=== PATIENT | male | born 1980 | race Hispanic/Latino ===

== ENCOUNTER → 2018-08-29 | Outpatient (CLI) | payer OTHER ==
[~2018-08-29] MED LIST: ACIDOPHILUS1 EAC1 PO; BACTRIM DS TAB1 EACH PO; CLINDAMYCIN HC150 MG PO; FESO PO; FOLIC ACID1 MG PO; GABAPENTIN300 MG PO; GLIPIZIDE5 MG PO; HUMALOG100 UNIT/3 SQ; LANTUS 3ML100 UNITS/ SC; LASIX40 MG PO; LISINOPRIL10 MG PO; LISINOPRIL2.5 MG PO; METFORMIN HCL500 MG PO; NORVASC5 MG PO; PAROXETINE HCL20 MG PO; POTASSIUM CHLO10 ME1 PO; TYLENOL # 31 EA PO; TYLENOL WITH C1 EACH PO; ULTRAM50 MG PO
--- NOTE | 2018-08-29 18:34 | Diagnostic Imaging Report ---
Labeled WBC Study Reason for exam: Suspect acute hematogenous osteomyelitis of the right ankle. Patient has insulin-dependent diabetes for 19 years. He developed a plantar ulcer at the right 5th toe 3 years ago that had healed but recurred one year ago; although wound has decreased in size to "dime" size, the wound remains open. Comparison: MRI right foot 05/23/2018; right foot radiographs 05/22/2018 Report: The patient's own white blood cells were labeled with Tc-99m HMPAO 17 mCi by a commercial radiopharmacy. Images of feet and ankles were obtained at 3 hours post administration of the labeled white blood cells. Diffuse mildly increased tracer is seen in the soft tissues of the right lower leg, ankle and foot compared to the left. Small focal area of increased tracer is seen on the plantar aspect of the right foot opposite the 5th M/P joint. No adjacent uptake of tracer is seen in bone. No abnormal increased tracer is seen in the feet and ankles, specifically, none in the right ankle. IMPRESSION: 1. Diffuse inflammatory process in the soft tissues of the right lower leg, ankle and foot. 2. No scan evidence of osteomyelitis in or near the right ankle or elsewhere within the feet and ankles. 3. The superficial wound on the plantar aspect of the right foot near the 5th toe is limited to soft tissue and corresponds to the known slow healing ulcer. There is no extension into bone. Signed by: Dr. Tasha Stein M.D. on 08/29/2018 6:31 PM
== END ==
LOC: NM 06:46
PROVIDERS: ATTEND Internal Medicine Infectious Disease
DX: M86.071 Acute hematogenous osteomyelitis, right ankle and foot (principal)
CPT/HCPCS: 78806; A9521; A9556; A9570

== ENCOUNTER 2019-05-13 22:57 | Inpatient (IN) | payer BC, OTHER ==
[~2019-05-13] VITALS: Ht 170.2 cm; Wt 90.7 kg
[2019-05-13] MEDS ORDERED: ACETAMINOPHEN 325 MG TAB PO ONE (23:15)
--- NOTE | 2019-05-13 23:20 | NUR ---
RADIOLOGY AT BEDSIDE FOR CXR AT THIS TIME.
[2019-05-13] MEDS ORDERED: PIPER-TAZ 3.375 GM 50 ML IV SCH (23:30)
[2019-05-13 23:38] LABS: BASOPHILS % 0.2 % (0.0-1.0); EOSINOPHILS % 0.4 % (0.0-6.0); HEMATOCRIT 26.1 % (38.2-49.6); LYMPHOCYTES # (AUTO) 1.1 (1.0-3.2); LYMPHOCYTES % 9.9 % (18.0-39.1); MEAN CORPUSCULAR HEMOGLOBIN 29.4 pg (28-32); MEAN CORPUSCULAR HGB CONC 34.5 g/dL (31-35); MEAN CORPUSCULAR VOLUME 85.3 fL (81-99); MONOCYTES # (AUTO) 1.3 (0.2-0.8); MONOCYTES % 11.6 % (4.4-11.3); NEUTROPHILS # (AUTO) 8.6 (2.1-6.9); NEUTROPHILS % 75.9 % (38.7-80.0); PLATELET COUNT 277 x10e3/uL (140-360); RED BLOOD COUNT 3.06 x10e6/uL (4.3-5.7); RED CELL DISTRIBUTION WIDTH 14.4 % (11.7-14.4)
[2019-05-13 23:54] LABS: ALBUMIN/GLOBULIN RATIO 0.4 (0.8-2.0); ANION GAP 18.4 mmol/L (8-16); CALCIUM 8.5 mg/dL (8.4-10.2); CREATININE, SERUM 2.81 mg/dL (0.72-1.25); POTASSIUM 4.4 mmol/L (3.5-5.1)
[2019-05-14] VITALS (9 sets, daily range): BP systolic 112–141; BP diastolic 60–65
--- NOTE | 2019-05-14 00:06 | Diagnostic Imaging Report ---
Foot limited right CPT code: 62689 Indication: Foot swelling, pain, history of osteomyelitis Technique: A.P. and lateral views of the right foot obtained Comparison: MRI 05/13/2018, foot x-rays 05/22/2018 Findings: Erosive changes of the distal fourth metacarpal have developed with destruction of the MTP joint. The proximal phalanx of the fourth digit is gracile. There is extensive subcutaneous air along the fourth ray. No periosteal new bone formation. No acute fracture. Gracile appearance of the fifth metatarsal is redemonstrated with irregular cortical margins. There is chronic hyperextension of the fifth MTP and chronic flexion of the proximal IP joint. No erosive changes. Digits 1 through 3 appear intact. No fractures of the midfoot or hindfoot. There are degenerative changes of the IP joint of the first digit. Subcutaneous emphysema in the lateral ankle. There is suggestion of a skin ulceration at the plantar aspect of the first MTP. Diffuse soft tissue swelling of the foot and ankle. IMPRESSION: 1. Findings of chronic osteomyelitis of the fourth and fifth rays. Extensive subcutaneous emphysema along the fourth ray and along the lateral ankle concerning for acute osteomyelitis. 2. Ulceration at the plantar surface of the forefoot, possibly at the first MTP joint. No radiographic evidence of osteomyelitis. Signed by: Dr. Tonya Lucero MD on 05/14/2019 12:03 AM
[2019-05-14] MEDS ORDERED: DEXTROSE 50% SYRINGE 50 ML IV PRN (00:30)
[2019-05-14] MEDS ORDERED: SODIUM CHLORIDE 0.9% 1000ML 1,000 ML IV ONE (00:30)
[2019-05-14] MEDS: ONDANSETRON HCL INJ 2MG/ML 2ML 2 MG/ML VIAL IV PRN ×2 (00:42→04:18)
[2019-05-14] MEDS: MORPHINE SULFATE INJ 4 MG/ML INJ 1ML IV PRN ×6 (00:44→20:13)
[2019-05-14] MEDS: VANCOMYCIN 1GM/NS 250 ML 250 ML IV SCH (01:00)
[2019-05-14] MEDS ORDERED: VANCOMYCIN 1GM/NS 250 ML 250 ML IV SCH (01:00)
--- NOTE | 2019-05-14 01:06 | NUR ---
Received patient from ER on wheelchair. Patient transferred from to bed. at bedside. Patient provided the history stating the dresser feel on top of his right foot about a week ago with no open wound then 2-3 days later, pus was coming out from the top of the foot. Patient is A/Ox4 with pain at 8/10. Patient received pain IV medication in ER about 30 minutes ago. Bed height low, call light within reach, wheels lock and rails up x2. Will monitor the patient for pain. Placed disposable pad under the right foot for drainage. Foul odor is noted from the drainage.
[2019-05-14] MEDS: SODIUM CHLORIDE 0.9% 1000ML 1,000 ML IV SCH ×4 (02:37→20:55)
[2019-05-14] MEDS: PIPERACILLIN/TAZO 2.25 GM 50 ML IV SCH ×3 (08:15→23:47)
[2019-05-14] MEDS: INSULIN REGULAR, HUMAN 100 UNIT/1 ML 3ML VIAL SQ SCH ×4 (08:15→20:18)
[2019-05-14] MEDS: FERROUS SULFATE 325 MG PO SCH (15:39)
--- NOTE | 2019-05-14 16:46 | History and Physical ---
He is a 38-year-old male patient of mine presented with a complaint of right foot foul-smelling wound. HISTORY OF PRESENT ILLNESS: Mr. Ethan Marlow is a 38-year-old male patient with a previous history of diabetic foot ulcer and chronic osteomyelitis and Charcot joint and diabetic foot and insulin-requiring diabetes in the young male. The patient presented to the emergency room with a complaint of 1-week history of injury to the right foot by moving furniture and the patient stated that the furniture fell on his right foot and then subsequently had redness, swelling, pain, and purulent discharge. The patient stated he was in [place] and he saw local doctor and was given some kind of antibiotic, but the patient did not get any better and the patient gradually got worse and had a severe foul smelling, leg ulceration, and purulent discharge. So, the patient had come to the emergency room. The patient was also seen by podiatry, Dr. Aguilera as outpatient for his chronic foot wound and before the injury, the wound was better. REVIEW OF SYSTEMS: A detailed review of system examination was done and the patient was having weakness, fever, chills, and foul smelling, ulceration of the right foot. ALLERGIES: NO KNOWN DRUG ALLERGIES. SOCIAL HISTORY: Denies smoking. Denies using alcohol. FAMILY HISTORY: Diabetes mellitus, hypertension. MEDICATIONS: See from the list. PAST SURGICAL HISTORY: The patient has a surgery of the right foot I and D was done. PHYSICAL EXAMINATION: GENERAL: He is a young male patient lying in the bed, not in any acute distress. VITAL SIGNS: Temperature 99, pulse rate 20, blood pressure 138/84, respirations 20. Temperature was 100.5 on arrival. HEENT: Normocephalic, atraumatic. No JVD. No lymphadenopathy. LUNGS: Bilateral equal air entry. No rales, no rhonchi. HEART: S1, S2 regular. No murmur. No gallop. ABDOMEN: Soft. Bowel sounds are present. NEUROLOGICAL: No focal neurological deficit. ADMITTING IMPRESSION: Extremity examination, right foot ulceration. The patient has a purulent draining foul smelling wound on the right foot between the toes. The patient has a chronic ulceration on the sole of the foot. The patient has redness, swelling, and tenderness in the foot. ADMITTING IMPRESSION/DIAGNOSES: Right foot osteomyelitis, right foot abscess, type 1 diabetes mellitus, acute on chronic renal failure, hyperglycemia, and anemia of chronic disease. PLAN: The patient will be admitted with above diagnoses. The patient will be treated with vancomycin and Zosyn and we will do the podiatry and ID consultation and nephrology consultation and the patient will need extensive debridement and wound cleaning. So, we will consult Podiatry and we will hold the patient's lisinopril and potassium in the context of renal failure. MD LUIS Echeverria/MODL /[id number]
[2019-05-14] MEDS ORDERED: ACETAMINOPHEN/CODEINE 300MG - 30MG TAB PO SCH ×2 (18:00→18:15)
[2019-05-14] MEDS ORDERED: FENTANYL CITRATE/PF 100MCG/2 ML INJ ONE (18:41)
[2019-05-14] MEDS ORDERED: MIDAZOLAM HCL 2 MG/2 ML VIAL ONE (18:41)
--- NOTE | 2019-05-14 18:45 | NUR ---
Received bedside report from day shift RN. Patient is laying on the bed, bed height low, call light within reach, wheels lock, and side rails up x2. Patient is talking on the phone with friend/family.
[2019-05-14] MEDS: ACETAMINOPHEN/CODEINE 300MG - 30MG TAB PO PRN (18:58)
[2019-05-14] MEDS: INSULIN GLARGINE 100 UNITS/ML VIAL SC SCH (20:18)
[2019-05-15] VITALS (8 sets, daily range): BP systolic 117–149; BP diastolic 73–80
[2019-05-15] MEDS: MORPHINE SULFATE INJ 4 MG/ML INJ 1ML IV PRN ×6 (00:13→22:22)
[2019-05-15] MEDS: VANCOMYCIN 1GM/NS 250 ML 250 ML IV SCH ×2 (00:13→23:58)
--- NOTE | 2019-05-15 04:21 | NUR ---
RN changed dressing by removing old dressing. Old dressing saturated with both pus (foul odor) described as greenish yellowish and blood. Dressing was saturated moderate to large. One wound (dry) was noted under the foot. The wound with drainage is noted between digit 3 and 4 as open. Another wound is noted on the lateral aspect of the foot as dry. Wound between the toes was cleaned with NS. NS applied on the 4x4 between the toes and covered with Kerlix and tape. Proper dressing will take place once retail client solutions consultant/wound care nurse assess the wound and provide instruction for wound care.
[2019-05-15 05:50] LABS: BASOPHILS % 0.2 % (0.0-1.0); EOSINOPHILS # (AUTO) 0.1 (0.0-0.4); EOSINOPHILS % 0.5 % (0.0-6.0); HEMATOCRIT 24.5 % (38.2-49.6); HEMOGLOBIN 7.8 g/dL (14.0-18.0); LYMPHOCYTES # (AUTO) 1.3 (1.0-3.2); LYMPHOCYTES % 10.6 % (18.0-39.1); MEAN CORPUSCULAR HEMOGLOBIN 28.7 pg (28-32); MEAN CORPUSCULAR HGB CONC 31.8 g/dL (31-35); MEAN CORPUSCULAR VOLUME 90.1 fL (81-99); MONOCYTES # (AUTO) 0.9 (0.2-0.8); MONOCYTES % 7.8 % (4.4-11.3); NEUTROPHILS # (AUTO) 9.2 (2.1-6.9); NEUTROPHILS % 78.6 % (38.7-80.0); PLATELET COUNT 248 x10e3/uL (140-360); RED BLOOD COUNT 2.72 x10e6/uL (4.3-5.7); RED CELL DISTRIBUTION WIDTH 14.7 % (11.7-14.4)
[2019-05-15 06:05] LABS: ALBUMIN 1.6 g/dL (3.5-5.0); ALBUMIN/GLOBULIN RATIO 0.3 (0.8-2.0); ANION GAP 16.1 mmol/L (8-16); CALCIUM 7.8 mg/dL (8.4-10.2); CREATININE, SERUM 2.43 mg/dL (0.72-1.25); POTASSIUM 4.1 mmol/L (3.5-5.1)
[2019-05-15] MEDS: SODIUM CHLORIDE 0.9% 1000ML 1,000 ML IV SCH (07:06)
[2019-05-15] MEDS: INSULIN REGULAR, HUMAN 100 UNIT/1 ML 3ML VIAL SQ SCH ×4 (08:40→21:13)
[2019-05-15] MEDS: PIPERACILLIN/TAZO 2.25 GM 50 ML IV SCH ×3 (08:40→22:22)
[2019-05-15] MEDS: FOLIC ACID 1 MG TAB PO SCH (08:40)
[2019-05-15] MEDS: ONDANSETRON HCL INJ 2MG/ML 2ML 2 MG/ML VIAL IV PRN ×4 (08:45→22:22)
[2019-05-15 08:58] LABS: EOSINOPHILS % (MANUAL) 2 % (0-7); LYMPHOCYTES % (MANUAL) 12 % (19-48); MONOCYTES % (MANUAL) 5 % (3.4-9.0); NEUTROPHILS % (MANUAL) 81 % (40-74); PLATELET ESTIMATE ADEQUATE; PLATELET MORPHOLOGY COMMENT NORMAL; RBC MORPHOLOGY COMMENT NORMAL
[2019-05-15] MEDS ORDERED: POTASSIUM CHLORIDE 10MEQ EA PO SCH (09:00)
[2019-05-15] MEDS ORDERED: LISINOPRIL 10 MG TAB PO SCH (09:00)
[2019-05-15] MEDS ORDERED: FUROSEMIDE 40 MG TAB PO SCH (09:00)
[2019-05-15] MEDS: FERROUS SULFATE 325 MG PO SCH ×2 (09:00→16:18)
--- NOTE | 2019-05-15 12:06 | Diagnostic Imaging Report ---
EXAM: Renal Ultrasound INDICATION: ^FREDDIE, CKD ^[id number] ^[id number] COMPARISON: Hepatic ultrasound of 05/30/2018 TECHNIQUE: Transverse and longitudinal images of the kidneys and bladder were obtained. FINDINGS: Right Kidney: Length: 12.7 cm Appearance: Normal echogenicity. Collecting system: No hydronephrosis Stones: None Cyst/Mass: None Left Kidney: Length: 12.1 cm Appearance: Normal echogenicity. Collecting system: No hydronephrosis Stones: None Cyst/Mass: None Bladder: Normal Incidental note is made of a mildly enlarged spleen, measuring up to 17.28 cm IMPRESSION: No hydronephrosis or renal calculi. Mild splenomegaly. Signed by: Xena Bonner MD on 05/15/2019 12:03 PM
[2019-05-15] MEDS: ENOXAPARIN INJ 80 MG/0.8 ML SYR SC SCH ×2 (12:57→23:19)
[2019-05-15] MEDS ORDERED: TETANUS/DIPHTHERIA TOX ADULT 0.5 ML SYR IM ONE (13:00)
--- NOTE | 2019-05-15 13:15 | Consultation ---
DATE OF CONSULTATION: 05/15/2019 REASON FOR CONSULTATION: Peripheral artery disease. CHIEF COMPLAINT: Right foot swelling. HISTORY OF PRESENT ILLNESS: This is a 38-year-old male with history of chronic right foot osteomyelitis, diabetes type 1, hypertension, chronic kidney disease stage 3, gastritis, anemia. The patient presents to [facility] ER with apparent complaints of right lower leg swelling, right foot swelling, redness, and fevers. Imaging done on the right foot showing right 4th and 5th digit osteomyelitis. Cardiology was consulted to evaluate the patient. The patient is seen in room, reports about a week or so ago was moving furniture, and furniture hit his right foot about 2 to 3 days later noted that his foot was swollen and he was admitted at that time, in which he received antibiotics x4 days. However, right foot swelling became worse, foul smelling. Therefore came to the hospital for further evaluation. Of note, patient had a left heart catheterization on March 19, 2016 and a peripheral angiogram on March 19, 2016 here at [facility] showing minimal plaque in coronary arteries. Also peripheral angiogram showed minimal tibial disease. PAST MEDICAL HISTORY: Diabetes type 1, hypertension, chronic right foot osteomyelitis, anemia, gastritis, esophageal strictures, chronic kidney disease. PAST SURGICAL HISTORY: Has three surgeries, left heart catheterization and peripheral angiogram in March 2016, right foot debridement. ALLERGIES: NO KNOWN ALLERGIES. HOME MEDICATIONS: Include lisinopril 20 mg daily, Lantus 20 units subcu at bedtime, Lasix 40 mg p.o. daily, folic acid 1 mg p.o. daily. FAMILY HISTORY: Mother apparently from ID at age of 63. Father is about 74 years of age. History of diabetes, hypertension. SOCIAL HISTORY: He is . 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 Has two young children. Apparently is healthy. Denies any alcohol use, tobacco use. REVIEW OF SYSTEMS: GENERAL: Denies any weakness. Positive for fevers and chills. Denies any weight changes. HEENT: No headaches or hearing issues. No earaches. Denies vision changes, sore throat, swollen neck. CARDIAC: Denies any chest pain. Positive for dyspnea on exertion. Denies any palpitations, orthopnea, or PND. LUNGS: Denies any shortness of breath, any hemoptysis, any wheezing. GI: Denies any nausea, vomiting, diarrhea, constipation, melena, or hematochezia. : Denies any frequency, urgency, dysuria, or hematuria. NEUROLOGIC: Denies any seizures, headaches, weakness. Positive for peripheral neuropathy. ENDOCRINE: Denies any polyuria, polydipsia, polyphagia. PHYSICAL EXAMINATION: VITAL SIGNS: Height 67 inches, weight 200 pounds, BMI 31. Current temperature 97, pulse 75, respiratory rate 20, blood pressure 132/74, pulse ox 100% on room air. GENERAL: No acute distress. Reliable informant. HEENT: Normocephalic. Pupils are equal and reactive. Extraocular movement intact. Trachea midline. NECK: No JVD. No carotid bruits. CHEST: Bilateral breath sounds clear to auscultation. No wheezes or rales noted. HEART: Regular rate and rhythm. PMI at 5th intercostal space, left intercostal space +1 and +S2. ABDOMEN: Soft, nontender, nondistended. No organomegaly. EXTREMITIES: Lower extremity edema, right greater than left. Also right foot with dressing with serosanguineous drainage and foul smelling. VASCULAR: +2 bilateral radial pulses bilaterally, +2 bilateral femoral pulses bilaterally, +1 DP and PT pulses bilaterally. NEUROLOGIC: Cranial nerves II through XII seem intact. LABORATORY DATA: Sodium 130, potassium 4.1, chloride 104. BUN 56, creatinine 2.4, glucose 184. CBC; white count 11, hemoglobin 9, hematocrit of 26, platelets 277. Micro; right foot showing gram-negative bacilli, Staph aureus and Streptococcus species. Right foot x-ray showing 4th and 5th chronic osteomyelitis, also subcu emphysema along the 4th digit and also along the lateral ankle. ASSESSMENT: 1. Right foot osteomyelitis. 2. Diabetes. 3. History of left heart catheterization in March 2016 showing minimal plaquing also. 4. History of peripheral angiogram in March 2016 showing minimal tibial disease. PLAN: 1. The patient presents with right foot osteomyelitis. ID has been consulted for antibiotic therapy. 2. Arterial Doppler has been done, will be reviewed by Cardiology attending. 3. Right leg with extensive swelling. We will go ahead and do a stat venous Doppler to evaluate for any occult DVTs. 4. We will go ahead and place patient on modified Lovenox dosing given kidney function. 5. We will continue to follow the patient and evaluate status and further make recommendations as clinical course. Thank you very much for this consult. Seen and examined, severe cellulitis with tissue loss and marked swelling of right leg worried also for DVT, compatment syndrome etc... Critical status Orders are written, discussed with ID Dr. Rico, needs to have surgical consult Dictated by Júnior Naranjo, FRAME RUNNER Rico Morrow MD DC/IRAJ /[id number] MTDRebecca
--- NOTE | 2019-05-15 13:49 | NUR ---
Consultation for foot wound to R foot after dropping an dresser on the foot 10 days ago. Patient states there was really nothing wrong with it but 3 days later it was hurting and he did not feel well and it started draining. [place]. Patient had an ongoing diabetic foot ulcer that has been under the care of Dr. Willy LOPEZ at [facility]. The plantar surface wound does not appear to communicate the the injury and no purulent drainage. The injured site appears to be at the 3rd and 4th metatarsal area. Upon pressing the top of the foot, copious amounts of purulent drainage is expressed, mixed with blood. There is an odor noted. Able to palpate bone, and the depth of the wound extends 11 cm. The WBC count is at 6.1. The patients GFR is at 7 with BNP at 771.9. Patient states he tries to stay on his diet, but children in the room are teasing the patient about not keeping diet. Current glucose levels showing below 100. Placed a message into Dr. Veronica Palm regarding urgent need for consultation. Maxorb AG placed to both wounds until consultation is complete for further orders. Education to patient regarding the nature of his wounds, and the need for strict compliance with dietary regiment.
[2019-05-15] MEDS: SODIUM BICARBONATE 650 MG TAB PO SCH ×2 (15:00→21:14)
--- NOTE | 2019-05-15 15:16 | Consultation ---
INFECTIOUS DISEASE CONSULTATION DATE OF CONSULTATION: 05/15/2019 REASON FOR CONSULTATION: Osteomyelitis. Thank you, Dr. Shankar, for asking me to see this patient, who was admitted through the emergency department. HISTORY OF PRESENT ILLNESS: The patient is a 38-year-old man referred for osteomyelitis. He presented to the emergency department on 05/13/2019, with progressive swelling and pain of the right foot and lower leg, associated with purulent drainage and redness. He had injury to the right foot, when a furniture fell on the right foot about one week earlier. He was treated in [place] with antibiotic without improvement. In the emergency department, he was noted to have a temperature of 100.5 degrees Fahrenheit, pulse rate 95, respiratory rate 20, blood pressure 138/84, and oxygen saturation 100% on room air. Initial laboratory studies showed blood leukocyte count of 11,360 with 75.9% neutrophils, BUN 56, creatinine 2.43, and blood glucose 220. X-ray of the right foot showed chronic osteomyelitis of the 4th and 5th rays with extensive subcutaneous emphysema along the 4th ray and lateral ankle concerning for acute osteomyelitis. PAST MEDICAL HISTORY: Diabetes mellitus type 1, hypertension, and chronic kidney disease. PAST SURGICAL HISTORY: Left foot surgery. ALLERGIES: NO KNOWN DRUG ALLERGIES. MEDICATIONS: See MAR. Current antibiotics are Zosyn 2.25 g IV piggyback q.8 hours, vancomycin 1 g IV piggyback q.24 hours. IMMUNIZATION: Tetanus-diphtheria vaccination, status cannot be verified. FAMILY HISTORY: Significant for diabetes mellitus and hypertension. SOCIAL HISTORY: No alcohol, tobacco, or recreational drug use. REVIEW OF SYSTEMS: As per history of present illness. The patient still has intermittent fever as well as purulent draining, redness, and swelling of the right foot. He denies cough, shortness of breath, nausea, vomiting, diarrhea, and abdominal pain. PHYSICAL EXAMINATION: GENERAL: No acute distress. VITAL SIGNS: T-max 99.9, pulse rate 85, respiratory rate 20, blood pressure 146/76, and weight 200 pounds. HEENT: Normocephalic. There is no icterus or injection of conjunctivae. There is no ear or nasal discharge. Moist oral mucosa. No pharyngeal erythema or exudate. NECK: Supple. No meningismus. LUNGS: Clear to auscultation bilaterally. HEART: Normal S1, S2. Regular. ABDOMEN: Soft and nontender. EXTREMITIES: There is edema, redness, and warmth of right foot with purulent drainage from the lateral forefoot. Dorsalis pedis and posterior tibial pulses difficult in the right foot. SKIN: There is a draining wound of the lateral forefoot. SENIOR TEST ANALYST: Awake, alert, oriented to person, place, and time. There is decreased sensation to monofilament test of the feet. Nonfocal. LABORATORY AND DIAGNOSTICS: WBC 11,760, hemoglobin 7.8, and platelet 248,000, neutrophils 78.6, lymphocytes 10.6, monocytes 7.8, eosinophils 0.5, and basophils 0.2. BUN 56, creatinine 2.43, blood glucose 198. IMPRESSION: 1. Diabetic foot abscess. 2. Acute osteomyelitis of the right foot/ankle. 3. Diabetes mellitus type 1. 4. Acute kidney injury on chronic kidney disease. PLAN: 1. Change Zosyn to 2.25 g IV piggyback q.6 hours. Administer tetanus-diphtheria vaccine if not yet given. 2. Check arterial Doppler ultrasound report and C-reactive protein. Also, monitor vancomycin level very closely. 3. Podiatry consult. MD DIPAK Chacon/IRAJ /[id number] MTDD
--- NOTE | 2019-05-15 15:16 | Consultation ---
DATE OF CONSULTATION: 05/15/2019 HISTORY OF PRESENT ILLNESS: This is a 38-year-old gentleman with a history of type 1 diabetes for at least 20 years. He stays he has some vision changes as well. He does not take any medication for his blood pressure. He states that sometimes it goes up, sometimes comes down. He is here for an infected foot ulcer. Renal consult for management of kidney failure. Laboratory test shows hemoglobin 7.8, white count 11.7 with a sodium 130, potassium 4.1, bicarbonate 14, creatinine 2.4 with an albumin 1.6. SOCIAL HISTORY: He does not smoke or drink. FAMILY HISTORY: Significant for diabetes. ALLERGIES: NO APPARENT DRUG ALLERGIES. REVIEW OF SYSTEMS: Negative for nausea, vomiting, chest pain, shortness of breath. He is at the moment receiving normal saline at 125 mL/hour, which I am going to stop at this point in time. MEDICATIONS: He is on piperacillin and tazobactam receiving vancomycin 1 g q.24. He is on enoxaparin, Lovenox 70 q.12h, folic acid 1 mg daily. Lasix has been stopped. He is on insulin as well as lisinopril. Lisinopril has been stopped also along with potassium replacement. PHYSICAL EXAMINATION: GENERAL: Awake, alert, and oriented x3, lying supine in bed, in no apparent distress. VITAL SIGNS: Blood pressure 132/74, pulse rate 75, afebrile, oxygen saturation 100% on room air. HEAD AND NECK: Cornea clear. Oral mucosa moist. Neck veins flat. LUNGS: Relatively clear. HEART: 2 to 3/6 ejection systolic murmur heard over left sternal border. No gallop. ABDOMEN: Otherwise soft, nontender. EXTREMITIES: Lower extremity, dressing noted in right foot. There is some 1+ edema, pretibial right foot. Left lower extremity, no edema. IMPRESSION: 1. Anemia, multifactorial, most likely iron deficiency anemia with metabolic acidosis, most likely distal RTA. 2. Hyponatremia, multifactorial. 3. Acute kidney injury, most likely an underlying diabetic nephropathy and improving otherwise. PLAN: On obtaining a urinalysis, spot urine protein-creatinine ratio, kidney ultrasound, iron profile. Start sodium bicarbonate tablets. He may need packed RBC transfusion. Medications reviewed and agree with measures taken. Please Dr. Gomez in charge of antibiotics, defer vancomycin level checks to him. Further recommendations to follow. MD SHERIF Jolley/IRAJ /[id number]
[2019-05-15 16:56] LABS: ALBUMIN 1.8 g/dL (3.5-5.0); ALBUMIN/GLOBULIN RATIO 0.3 (0.8-2.0); ANION GAP 13.4 mmol/L (8-16); CALCIUM 8.2 mg/dL (8.4-10.2); CREATININE, SERUM 2.26 mg/dL (0.72-1.25); POTASSIUM 4.4 mmol/L (3.5-5.1)
[2019-05-15 17:09] LABS: % IRON SATURATION 13 % (15-50); IRON 20 ug/dL (65-175); TOTAL IRON BINDING CAPACITY 155 ug/dL (261-478); TRANSFERRIN 111 mg/dL (174-364)
--- NOTE | 2019-05-15 18:45 | NUR ---
Received bedside report from day shift RN. Patient is laying on the bed, bed height low, call light within reach, wheels lock, and side rails up x2. RN instructed the patient will be receiving 2 units of RBC and will need to sign the consents for blood transfusion and I&D, possible amputation of the right foot. Verbalized understanding.
[2019-05-15] MEDS ORDERED: SODIUM CHLORIDE 0.9% 250ML 250 ML IV ONE (19:15)
--- NOTE | 2019-05-15 19:24 | Diagnostic Imaging Report ---
EXAMINATION: CHEST 2 VIEWS INDICATION: Acute on chronic renal failure. Denies chest complaints. ^pre-procedure COMPARISON: None FINDINGS: PA and lateral views TUBES and LINES: None. LUNGS: Lungs are well inflated. Lungs are clear. There is no evidence of pneumonia or pulmonary edema. PLEURA: No pleural effusion or pneumothorax. HEART AND MEDIASTINUM: The cardiomediastinal silhouette is unremarkable. BONES AND SOFT TISSUES: No acute osseous lesion. Soft tissues are unremarkable. UPPER ABDOMEN: No free air under the diaphragm. IMPRESSION: No acute thoracic abnormality. Signed by: Dr. Sunny Casiano M.D. on 05/15/2019 7:21 PM
[2019-05-15] MEDS: INSULIN GLARGINE 100 UNITS/ML VIAL SC SCH (21:14)
[2019-05-15] MEDS ORDERED: SODIUM CHLORIDE 0.9% 500ML 500 ML ONE (22:17)
--- NOTE | 2019-05-15 23:20 | NUR ---
RN called lab to check on blood unit stat. Lab stated the patient has antibodies and in searching for the right type at the blood bank. The patient was informed about this and acknowledge once the blood is located and brought to the hospital, the blood transfusion will begin. Verbalized understanding.
[2019-05-16] VITALS (14 sets, daily range): BP systolic 115–165; BP diastolic 53–83
[2019-05-16] MEDS: ONDANSETRON HCL INJ 2MG/ML 2ML 2 MG/ML VIAL IV PRN (02:12)
[2019-05-16] MEDS: MORPHINE SULFATE INJ 4 MG/ML INJ 1ML IV PRN ×3 (02:12→18:55)
[2019-05-16] MEDS: PIPERACILLIN/TAZO 2.25 GM 50 ML IV SCH ×2 (06:00→12:40)
[2019-05-16] MEDS ORDERED: LIDOCAINE HCL 1% LOCAL INJ 20 ML VIAL ONE (06:51)
[2019-05-16] MEDS ORDERED: BUPIVACAINE HCL 0.5% INJ 30 ML VIAL INJ ONE (06:51)
[2019-05-16] MEDS ORDERED: BETAMETHASONE DISODIUM PHOS 6 MG/ML VIAL ONE (06:51)
[2019-05-16] MEDS ORDERED: BACITRACIN 50,000 UNIT VIAL ONE (06:51)
[2019-05-16] MEDS ORDERED: MUPIROCIN 2% OINT 22 GM TUBE ONE (06:51)
[2019-05-16] MEDS: INSULIN REGULAR, HUMAN 100 UNIT/1 ML 3ML VIAL SQ SCH ×4 (07:30→22:15)
--- NOTE | 2019-05-16 07:30 | NUR ---
REC'D PATIENT AAOX3, ON ROOM AIR, NS RUNNING AT 125 ML/HR, NO S/S OF DISTRESS. PATIENT BEING TAKEN TO SURGERY. CONSENT SIGNED.
[2019-05-16] MEDS: SODIUM BICARBONATE 650 MG TAB PO SCH ×2 (08:45→22:15)
[2019-05-16] MEDS: FERROUS SULFATE 325 MG PO SCH ×2 (08:45→17:00)
[2019-05-16] MEDS: FOLIC ACID 1 MG TAB PO SCH (08:45)
--- NOTE | 2019-05-16 08:45 | Diagnostic Imaging Report ---
Exam: Right foot 3 views History: Postoperative study Comparison: Right foot 3 views 05/13/2019 Findings: Interval debridement of the lateral aspect of the forefoot with resection of the fourth proximal phalanx. Cortical destructive change of the fourth metatarsal and middle phalanx is grossly unchanged. Stable changes of chronic osteomyelitis with deformity of the fifth metatarsal and metatarsophalangeal joint. Atherosclerotic vascular calcifications. Overlying bandage material limits osseous detail. Impression: Interval debridement and resection of the fourth proximal phalanx, with otherwise stable findings of osteomyelitis involving the lateral forefoot relative to 05/13/2019. Signed by: Dr. Júnior Robles M.D. on 05/16/2019 8:42 AM
--- NOTE | 2019-05-16 09:00 | NUR ---
PATIENT RETURNED FROM SURGERY. SIDE RAILS UP X2, BED IN LOWEST POSITION, AND CALL GRANT WITHIN REACH. FAMILY MEMBER AT BEDSIDE.
[2019-05-16 09:12] LABS: BASOPHILS % 0.2 % (0.0-1.0); EOSINOPHILS % 0.3 % (0.0-6.0); HEMATOCRIT 27.8 % (38.2-49.6); HEMOGLOBIN 9.2 g/dL (14.0-18.0); LYMPHOCYTES # (AUTO) 0.8 (1.0-3.2); LYMPHOCYTES % 5.8 % (18.0-39.1); MEAN CORPUSCULAR HEMOGLOBIN 29.7 pg (28-32); MEAN CORPUSCULAR HGB CONC 33.1 g/dL (31-35); MEAN CORPUSCULAR VOLUME 89.7 fL (81-99); MONOCYTES # (AUTO) 0.4 (0.2-0.8); NEUTROPHILS # (AUTO) 11.5 (2.1-6.9); NEUTROPHILS % 89.1 % (38.7-80.0); PLATELET COUNT 293 x10e3/uL (140-360); RED CELL DISTRIBUTION WIDTH 14.4 % (11.7-14.4)
[2019-05-16] MEDS ORDERED: EPOETIN ALFA 10000 UNIT/ML VIAL SC ONE (10:00)
[2019-05-16 10:20] LABS: ALBUMIN 1.7 g/dL (3.5-5.0); ALBUMIN/GLOBULIN RATIO 0.3 (0.8-2.0); ANION GAP 14.4 mmol/L (8-16); CALCIUM 7.9 mg/dL (8.4-10.2); CREATININE, SERUM 2.1 mg/dL (0.72-1.25); POTASSIUM 4.4 mmol/L (3.5-5.1)
--- NOTE | 2019-05-16 10:45 | Operative Report ---
DATE OF PROCEDURE: 05/16/2019 SURGEON: Mark Palm DPM PREOPERATIVE DIAGNOSES: 1. Ulcerations x2 down to muscle and bone, right foot. 2. Abscess, right foot. POSTOPERATIVE DIAGNOSES: 1. Ulcerations x2 down to muscle and bone, right foot. 2. Abscess, right foot. OPERATIVE PROCEDURE: 1. Debridement of ulcers down to bone and muscle, right foot. 2. I and D of abscess down to muscle and subcutaneous tissue and close to bone, right foot, multiple areas. ANESTHESIA: General. HEMOSTASIS: None. PROCEDURE IN DETAIL: The patient was taken into the operating room, placed on the operating room table in supine position. Following induction of general anesthesia by the anesthesiologist, the right lower extremity was then prepped and draped in the usual aseptic manner and the following procedures then performed. Procedure #1 and #2: Debridement of ulcerations down to muscle and bone. Attention was directed to the plantar ulceration of the right foot, which was noted to be tracking down to bone. The ulceration was debrided down to bone via the use of a sterile 10 blade, devitalized tissue sharply excised until good viable bleeding tissue achieved, abscess was encountered and cultured for aerobic and anaerobic growth. The bone was then debrided. Part of the 4th digit proximal phalanx was removed via sharp dissection. The ulceration to the plantar lateral aspect of the right foot was also debrided down to muscle, devitalized tissue sharply excised until good viable bleeding tissue was achieved. Ulcerations were measuring approximately 2.5 to 3 cm in diameter in plantar aspect of left foot and approximately 2 to 2.5 cm in diameter in plantar lateral aspect of right foot, tracking down to the subcutaneous tissue and fascial layers of the foot. Procedure #3: Debridement of abscesses, multiple areas, right foot. Attention was directed to the dorsal lateral aspect of the right talotibial joint, where a 3-4 cm incision was performed. Incision was deepened down through the muscle and subcutaneous tissue. Deep abscesses were encountered and I and D'd until good viable bleeding tissue was achieved both dorsally, plantarly, and plantar laterally. Three incisions were performed and each incision was then irrigated copiously with pulse lavage utilizing 50,000 units of bacitracin until good bleeding tissue was achieved, then the areas were then surgically packed and approximately 15 to 20 mL of 0.5% plain Marcaine were then used to achieve local anesthesia of above-mentioned surgical area. The patient was then transferred from the OR to recovery room with vital signs stable and neurovascular status intact. Blood loss from the surgery was approximately 50 mL. The patient will remain in the hospital getting IV antibiotics and local wound care. May need further surgery if not responsive, which may even include a [id number] amputation. JOHN Garza/IRJA /[id number]
--- NOTE | 2019-05-16 11:56 | Consultation ---
DATE OF CONSULTATION: 05/15/2019 REASON FOR CONSULTATION: Abscess, cellulitis with a grade 4 ulcer, right foot with the patient being an insulin-dependent diabetic x19 years. HISTORY OF PRESENT ILLNESS: This is a pleasant 38-year-old male, who is in no apparent distress, denying any history of fever, chills, nausea, vomiting at this point, but was having nausea and fever upon admission. The patient relates he had an ulceration that has been treated on an outpatient basis per Dr. Aguilera, was last seen back three weeks ago ended up going to [place] after he hit his foot against a furniture, was given antibiotics in [place], did not get any better and started relating that he had some fever and chills. The patient started squeezing his foot and started getting purulent drainage from his ulceration on the plantar aspect and also to the lateral aspect of the right ankle joint. PAST MEDICAL HISTORY: Remarkable for insulin-dependent diabetes, hypertension. PAST SURGICAL HISTORY: Remarkable for multiple I and D's of the right foot with partial resections of the 4th and 5th mets. He had multiple spider bites that had to be I and D'd one to the back of his head and the other one to his abdomen area and has had angiograms back in March of 2016 with a left heart catheterization. ALLERGIES: THE PATIENT DENIES. CURRENT MEDICATIONS: Noted listed in chart including IV Zosyn and vancomycin. SOCIAL HISTORY: Denies any smoking, drinking, or recreational drug use. Lives with his . Has two kids. FAMILY HISTORY: Remarkable for diabetes. REVIEW OF SYSTEMS: CARDIAC: He is denying any palpitations or arrhythmias. RESPIRATORY: Denies any shortness of breath or productive cough. GASTROINTESTINAL: Denies any abdominal pain or diarrhea. PHYSICAL EXAMINATION: VITAL SIGNS: The patient is currently afebrile, pulse rate 83, respirations 20, blood pressure 139/79, O2 saturation 100%. LABORATORY DATA: Noted. He has a white blood cell count of 11.3 upon admission on 05/13. It is now 11.7. Hemoglobin of 7.8, hematocrit of 24.5, platelet count of 248. Blood glucose of 125. PODIATRIC PHYSICAL EXAMINATION: Reveals the following: VASCULATURE: Pedal pulses of both the DP and PT are diminished. Has a moderate amount of swelling and cellulitis of the right leg and foot when compared to contralateral side. NEUROLOGIC: Examination was complete loss of protective sensation to both lower extremities. MUSCULOSKELETAL: Shows muscle mass to be asymmetrical. Some swelling and pitting edema noted to the right leg with positive cellulitis up to the mid calf area with muscle strength to be 4/5 to all muscle groups. DERMATOLOGIC: Shows multiple ulcerations to both lower extremities with a grade 4 ulcer tracking to bone sub 4th and 5th metatarsophalangeal joint area measuring more than 2 cm in diameter. Has purulent drainage surrounding the lateral aspect of the right ankle joint with fluctuance felt. Has osteomyelitic changes noted to possibly of 4th and 5th digits with some metatarsal sharpening of the shaft of the 4th and 5th mets, which may be consistent with possible osteo. IMAGING: X-rays were reviewed revealing gas to the dorsal aspect and plantar aspect right foot. ASSESSMENT: Deep space infection/osteomyelitis with a grade 4 ulcer. PLAN: Secondary to the extent of the infection, the patient will be taken for emergency surgical intervention tomorrow. He already ate today. Surgery will consist of debridement of ulcers, I and D of foot, with possible partial resection of the right foot depending on intraoperative findings. The proposed surgery plus risks and complications reviewed in great detail. The patient understands that no guarantees or warranties can be given. If not responsive, may end up even losing his leg. Chest x-ray and EKG were also ordered and the patient will be kept n.p.o. after midnight tonight. Two units of packed red blood cells will also be given secondary to his low hemoglobin. He has a hemoglobin of 7.8. JOHN Garza/IRAJ /[id number]
[2019-05-16] MEDS ORDERED: CLOPIDOGREL BISULFATE 300 MG TAB-DO NOT STOCK PO ONE (12:30)
--- NOTE | 2019-05-16 15:00 | NUR ---
NOTIFIED DR. TERRY THAT RIGHT FOOT DRESSING HAS SOME MODERATE DRAINAGE (SEROSANGENOUS). dR. TERRY SAID THAT IS OK AND THAT TOMORROW HE WILL SEE THE PATIENT TO SEE SURGICAL SITE.
--- NOTE | 2019-05-16 16:01 | NUR ---
DISCUSSED IN BARRIER ROUNDS GETTING ANGIO GRAM TODAY POSSIBLE PLAN FOR LTAC (?) NO ORDER OR DOCUMENTED PLAN AT THIS TIME.
[2019-05-16] MEDS ORDERED: LIDOCAINE HCL 2% LOCAL INJ 5 ML SDV VIAL INJ ONE (18:21)
[2019-05-16] MEDS ORDERED: SEVOFLURANE INHAL SOLN 250 ML PEN BTL ONE (18:21)
[2019-05-16] MEDS ORDERED: ONDANSETRON HCL INJ 2MG/ML 2ML 2 MG/ML VIAL ONE (18:21)
[2019-05-16] MEDS ORDERED: PROPOFOL IV EMULSION 10 MG/ML 20 ML VIAL ONE (18:21)
[2019-05-16] MEDS ORDERED: DEXAMETHASONE SOD PHOS INJ 4 MG/ML VIAL ONE (18:21)
[2019-05-16] MEDS ORDERED: EPHEDRINE SULFATE INJ 50 MG/10 ML SYR ONE (18:21)
[2019-05-16] MEDS: FERROUS SULFATE 325 MG TAB PO SCH (18:33)
[2019-05-16] MEDS: MEROPENEM 500MG/ NS 50ML 50 ML IV SCH (18:33)
--- NOTE | 2019-05-16 18:50 | NUR ---
PATIENT IN BED, FAMILY AT BEDSIDE, NO S/S OF DISTRESS. BED IN LOWEST POSITION, SIDE RAILS UP X2, AND CALL GRANT WITHIN REACH.
[2019-05-16] MEDS: SODIUM CHLORIDE 0.9% 1000ML 1,000 ML IV SCH (20:35)
[2019-05-16] MEDS: INSULIN GLARGINE 100 UNITS/ML VIAL SC SCH (22:15)
[2019-05-16] MEDS: ACETAMINOPHEN 325 MG TAB PO PRN (22:55)
[2019-05-16] MEDS: ACETAMINOPHEN/CODEINE 300MG - 30MG TAB PO PRN (22:55)
[2019-05-17] VITALS (14 sets, daily range): BP systolic 152–177; BP diastolic 56–90
[2019-05-17] MEDS: VANCOMYCIN 1GM/NS 250 ML 250 ML IV SCH (01:23)
[2019-05-17] MEDS: MORPHINE SULFATE INJ 4 MG/ML INJ 1ML IV PRN ×5 (01:42→17:30)
[2019-05-17] MEDS: MEROPENEM 500MG/ NS 50ML 50 ML IV SCH ×3 (02:35→17:02)
[2019-05-17] MEDS: SODIUM CHLORIDE 0.9% 1000ML 1,000 ML IV SCH ×3 (04:31→21:00)
[2019-05-17] MEDS: ONDANSETRON HCL INJ 2MG/ML 2ML 2 MG/ML VIAL IV PRN ×3 (05:08→17:30)
[2019-05-17 05:37] LABS: BASOPHILS % 0.2 % (0.0-1.0); EOSINOPHILS # (AUTO) 0.1 (0.0-0.4); EOSINOPHILS % 1.1 % (0.0-6.0); HEMATOCRIT 27.9 % (38.2-49.6); LYMPHOCYTES # (AUTO) 1.4 (1.0-3.2); LYMPHOCYTES % 14.1 % (18.0-39.1); MEAN CORPUSCULAR HEMOGLOBIN 28.8 pg (28-32); MEAN CORPUSCULAR HGB CONC 32.3 g/dL (31-35); MEAN CORPUSCULAR VOLUME 89.4 fL (81-99); MONOCYTES # (AUTO) 0.7 (0.2-0.8); MONOCYTES % 6.9 % (4.4-11.3); NEUTROPHILS # (AUTO) 7.7 (2.1-6.9); PLATELET COUNT 319 x10e3/uL (140-360); RED BLOOD COUNT 3.12 x10e6/uL (4.3-5.7)
[2019-05-17 05:49] LABS: ALBUMIN 1.8 g/dL (3.5-5.0); ALBUMIN/GLOBULIN RATIO 0.3 (0.8-2.0); ANION GAP 13.2 mmol/L (8-16); CALCIUM 7.9 mg/dL (8.4-10.2); CREATININE, SERUM 1.73 mg/dL (0.72-1.25); POTASSIUM 4.2 mmol/L (3.5-5.1)
[2019-05-17] MEDS ORDERED: LIDOCAINE HCL 2% LOCAL 20 ML VIAL ONE (07:20)
[2019-05-17] MEDS ORDERED: HEPARIN SOD/SOD CHLORIDE 2,000 ML ONE (07:20)
[2019-05-17] MEDS ORDERED: IOPAMIDOL 300MG/ML 100 ML INFUS..BTL IV ONE (07:21)
[2019-05-17] MEDS ORDERED: FENTANYL CITRATE/PF 100MCG/2 ML INJ ONE (07:24)
[2019-05-17] MEDS ORDERED: MIDAZOLAM HCL 2 MG/2 ML VIAL ONE (07:24)
[2019-05-17] MEDS ORDERED: SODIUM CHLORIDE 0.9% 1000ML 1,000 ML ONE (07:25)
[2019-05-17] MEDS ORDERED: INSULIN GLARGINE 100 UNITS/ML VIAL SQ SCH (07:30)
[2019-05-17] MEDS: INSULIN REGULAR, HUMAN 100 UNIT/1 ML 3ML VIAL SQ SCH ×4 (07:30→21:00)
[2019-05-17] MEDS ORDERED: NITROGLYCERIN/D5W 200 MCG/ML 250 ML ONE (07:31)
[2019-05-17] MEDS ORDERED: HEPARIN SOD (PORCINE) 1000 UNIT/ML 30ML ONE (07:31)
--- NOTE | 2019-05-17 07:54 | NUR ---
Patient taken off the unit at this time to the labor and employment paralegal. Patient is A&Ox3. patient states no pain at this time. Dressing to foot is soiled. Let the patient know that I would change dressing when he returned. Patient verbalized understanding.
[2019-05-17] MEDS: FERROUS SULFATE 325 MG PO SCH (09:00)
--- NOTE | 2019-05-17 09:06 | NUR ---
0906am Bedside report Rm #9 Identiferx2, NKDA Received from [facility]. Alert oriented and appropriate, PERRLA, respirations even and unlabored to room air. Pulses x3 extremities Rt leg swollen dressing in place D/I. PT palpable strong. Left PP x2 Pt/DP 2t strong/palpable. Pedal pulses PT/DP Cap fill brisk other panchal < 3 sec. Pt had Bilateral Abdominal aortogram Dr.M Topete requesting 45 minute hold in laborer tan house for observation then return to floor care Left groin stasis achieved [facility]. No hematoma no oozing. Dressing intact. Skin warm and dry integrity appears intact. Ns 800cc at KVO.IV 18g left AC. presents healthy w/o s/s of infiltration or complaint. Abdomen soft and supple. pt offered toileting, denies need to urinate or defecate. No personal affects with patient. Family not available Pt verbalizes understanding of POC. aware kepp left leg straight and jhead down Call light at bedside bed breaks on Bed in low position.Currently w/o complaint of pain or need. CONTACT PRECAUTIONS in place MRSA Rt FOOR WOUND. ds/rn
--- NOTE | 2019-05-17 09:45 | NUR ---
0945 RECOVERY TIME COMPLETED in slabbing machine operator. DOWN TILL 12n today.Left GROIN SITE W/O HEMATOMA OR OOZING (PT 2+ palpable.)PPX2 (DP/PT )pedal pulses strong to left foot. No gross issues pain, pallor, pressure or dysrhythmia. Denies c/o vs and Ekg stable, Report phoned to CARMEN Chang aware of down time till 12noon Handoff completed.Pt back to baseline orientation. Iv infusing well at kvo left ac #18 No s/s infiltration. Left pt with Rn at bedside call light at reach and bed brakes on with bed in low position. ds/rn
--- NOTE | 2019-05-17 10:00 | NUR ---
Patient returned from laborer landscape at this time. Insertion site to left groin is CDI. No hematoma present and site is soft and palpable. Patient is A&Ox3, with drowsiness noted. Patient complains of no pain at this time. Addendum: 05/17/19 at 1032 by Carson Pearson RN Per laborer landscape RN, patient is to be flat until 1200. Educated patient, he verbalized understanding. Call wu within reach.
[2019-05-17] MEDS: SODIUM BICARBONATE 650 MG TAB PO SCH ×3 (10:17→21:54)
[2019-05-17] MEDS: FOLIC ACID 1 MG TAB PO SCH (10:17)
[2019-05-17] MEDS: FERROUS SULFATE 325 MG TAB PO SCH ×2 (10:17→17:02)
--- NOTE | 2019-05-17 11:52 | Operative Report ---
DATE OF PROCEDURE: 05/17/2019 SURGEON: Rico Morrow MD INDICATION: Right foot ulcer with severe cellulitis and tissue loss status post major debridement, a very severe infection. TITLE OF PROCEDURE: 1. Pelvic angiogram. 2. Right contralateral left common femoral angiogram using digital subtraction technique with multiple injection all the way to the right foot level. 3. Ipsilateral left common femoral angiogram using digital subtraction technique was followed to the foot level. TECHNICAL DETAILS: After the usual sterile preparation and draping procedure, intravenous Versed and fentanyl given for sedation, local xylocaine for anesthesia, a 4-[place] sheath established in the left common femoral artery. A tennis racquet catheter advanced to the pelvis area. Angiogram was done. Subsequently, with the help of Zannel, the tennis racquet advanced all the way in contralateral fashion to the right common femoral artery. Angiograms were done using digital subtraction technique using multiple injections for the right superficial femoral, popliteal, anterior and posterior tibial, and the foot arteries. Then, the catheter was withdrawn, placed in the left common femoral artery, again repeated angiogram using digital subtraction technique for all arteries of the left lower extremity. At the end of the procedure, sheath was removed, hemostasis was achieved manually, no complication and minimal blood loss. RESULTS: A. Abdominal and pelvic angiogram. Below renal level, there is mild atherosclerosis. B. Right lower extremity angiogram showed mild plaquing throughout the arteries with no severe stenosis. On the tibial level, there is mild disease 30% to 40% at the lower leg level with reasonable circulation to the foot. Left lower extremity, again similar finding was found with mild atherosclerosis and mild disease at the tibial level. IMPRESSION: 1. Atherosclerotic arteries with mild atherosclerosis with no severe luminal narrowing. 2. This study proves the potential for good healing and good circulation to the right foot and right leg. RECOMMENDATION: Medical therapy. COMPLICATION: None. BLOOD LOSS: Minimum. Rico Morrow MD MOJ/MODL /[id number]
[2019-05-17] MEDS ORDERED: FUROSEMIDE INJ 10 MG/ML 4 ML VIAL IV ONE (13:00)
--- NOTE | 2019-05-17 13:23 | Progress Note ---
DATE: 05/17/2019 SUBJECTIVE: The patient seen at bedside, accompanied by Wound Care nurse. He is denying any history of fever, chills, nausea, or vomiting. OBJECTIVE: VITALS: Afebrile, respiratory rate 20, blood pressure 152/77, O2 saturation 100%. EXTREMITIES: Has multiple grade 3 and 4 ulcerations to both lower extremities, still some drainage noted, foul smell, but significantly less since the debridement of the ulcers and I and D of the right foot were performed. The patient will need another debridement and possible partial amputation of foot depending on how he starts responding to local wound care and IV antibiotics. LABORATORY DATA: Labs show white blood cell count dropping to 10.12, hemoglobin 9.0, hematocrit 27.9 with a platelet count of 319. ASSESSMENT: Multiple grade 3 and 4 ulcerations with cellulitis and osteomyelitis, right foot. PLAN: Dressing changes will be done b.i.d. with Santyl followed by diluted wet-to-dry. We will continue IV antibiotics such as vanco and meropenem. We will monitor foot, continue offloading. JOHN Garza/IRAJ /[id number]
--- NOTE | 2019-05-17 15:36 | NUR ---
WOUND CARE NURSE ASSESSMENT S/P [address] TERRY AT BEDSIDE, SURGICAL DRESSING CHANGED PER ORDERS. POST DEBRIDEMENT MEASUREMENTS ARE FOLLOWS: RIGHT PLANTAR FOOT, 2.5X2.8X1.9 AND CONNECTS WITH 3RD-4TH WEB SPACE, WHICH MEASURES APPROXIMATELY 5X1X4.5CM. RIGHT LATERAL-PLANTAR FOOT, 4X0.8X1.2CM WITH A 1CM TUNNEL AT 9 O'CLOCK AND 1.5CM TUNNEL AT 3 O'CLOCK. RIGHT LATERAL FOOT, 2X5X1.5CM WITH UNDERMINING FROM 12-12 O'CLOCK, THE DEEPEST AREA AT 2 O'CLOCK WITH 4.5CM. PER DR. TERRY SANTYL IS TO BE APPLIED TO RIGHT PLANTAR, RIGHT LATERAL-PLANTAR AND RIGHT LATERAL FOOT FOLLOWED BY BETADINE DILUTED WET TO DRY. 3RD-4TH WEB SPACE APPLY A SLIGHT PACKING WITH SALINE GAUZE. THEN COVER ALL ULCERS WITH ABD PAD AND KERLIX. CHANGE DRESSING BID. WILL CONTINUE TO MONITOR. Addendum: 05/17/19 at 1547 by Floridalma Gutierres RN Amended: Links added.
[2019-05-17] MEDS ORDERED: CLONIDINE HCL 0.1 MG TAB PO PRN (16:30)
--- NOTE | 2019-05-17 16:35 | NUR ---
Nutrition Screen Note RD Recommendation for Physician: -Continue ADA diet as ordered -RD provided education on diabetic diet as consulted. Plan of Care: RD following, monitoring for tolerance and adequacy, diet education Nutrition reason for involvement: RN Consult diet education Primary Diagnose(s): Right foot osteomyelitis, right foot abscess, type 1 diabetes mellitus, acute on chronic renal failure, hyperglycemia, and anemia of chronic disease PMH: insulin-dependent diabetes, hypertension Ht: 67in Wt: 200lb BMI: 31.3kg/m2 IBW: 148lb +/- 10% RD Assessment: (05/17) Chart reviewed. Labs and meds reviewed. 38yo M, who was admitted for R diabetic foot ulcer. BG today 140 240. HbA1c at 7.1%. + wound culture. Wound care following. Visited pt in the room. Pt reported good appetite without any GI complains. Pt denied any chewing or swallowing difficulty. His weight has stayed about the same. Pt stated I watch what I eat at home and my blood sugar usually runs at 160. Explained that elevated blood sugar is most likely due to lack of physical activity in the hospital and infection. Encouraged blood glucose control through diet and physical activity as well as protein foods to aid with wound healing. All questions have been answered. Current Diet: ADA Malnutrition Evaluation (05/17/2019) The patient does not meet criteria for a specified degree of malnutrition at this time. Will re-evaluate at follow-up as appropriate. Diet Education Needs Assessment: Diet education indicated, pt is agreeable. Learner(s): pt Time spent: 20minutes Barriers: No barriers identified. Cultural/Language Modifications: No cultural/language modifications noted. Pt speaks Cymraes. Readiness: Acceptance Method: Handouts, discussion Topics: Carbohydrate counting handouts, meal planning tips, servings/portion sizes Understanding/Compliance: Expect fair understanding/compliance from pt. Will benefit from reinforcement. All questions have been answered. Nutrition Care Level: low Signed: Angelina Cotter, MS, RD, LD
[2019-05-17 17:33] LABS: BILIRUBIN,URINE NEGATIVE (NEGATIVE); CLARITY,URINE CLEAR (CLEAR); COLOR,URINE YELLOW (YELLOW); KETONES,URINE NEGATIVE (NEGATIVE); LEUKOCYTE ESTERASE ,URINE NEGATIVE (NEGATIVE); NITRITE,URINE NEGATIVE (NEGATIVE); PROTEIN,URINE DIPSTICK 1+ (NEGATIVE); URINE UROBILINOGEN 0.2 mg/dL (0.2 - 1)
[2019-05-17 17:45] LABS: BACTERIA,URINE FEW /HPF; EPITHELIAL CELLS,URINE MODERATE /LPF; RBC,URINE 0-5 /HPF (0-5)
[2019-05-17 17:57] LABS: CREATININE,URINE RANDOM 15.03 mg/dL (63-166); TOTAL PROTEIN, URINE 54.2 mg/dL (1-14)
--- NOTE | 2019-05-17 18:32 | NUR ---
Patient's blood pressure 175/72 at this time. PRN medication administered at 1702 for blood pressure of 175/84. Pain medication administered as well. Will Notify Dr. Morrow again.
--- NOTE | 2019-05-17 19:22 | NUR ---
Patient received sitting up in bed. AAO x 4. Patient had no complaints of pain. Respirations even and non-labored. Dressing to right foot and groin clean dry and intact. Fall precautions implemented. Call light within reach.
[2019-05-17] MEDS: INSULIN GLARGINE 100 UNITS/ML VIAL SC SCH (21:00)
[2019-05-17] MEDS: COLLAGENASE 5 GM TUBE TOP SCH (21:54)
[2019-05-18] VITALS (8 sets, daily range): BP systolic 155–191; BP diastolic 80–95
[2019-05-18] MEDS: MEROPENEM 500MG/ NS 50ML 50 ML IV SCH ×3 (01:00→17:25)
--- NOTE | 2019-05-18 01:00 | NUR ---
Blood specimen sent to lab for analysis of Vancomycin trough level.
[2019-05-18] MEDS: MORPHINE SULFATE INJ 4 MG/ML INJ 1ML IV PRN ×4 (01:10→23:12)
[2019-05-18] MEDS: VANCOMYCIN 1GM/NS 250 ML 250 ML IV SCH (02:00)
[2019-05-18] MEDS: SODIUM CHLORIDE 0.9% 1000ML 1,000 ML IV SCH ×3 (05:00→22:00)
--- NOTE | 2019-05-18 05:00 | NUR ---
Wound dressing performed as per MD's orders. Minimal drainage noted. Patient tolerated well.
[2019-05-18 05:31] LABS: ALBUMIN 1.8 g/dL (3.5-5.0); ALBUMIN/GLOBULIN RATIO 0.4 (0.8-2.0); ANION GAP 12.7 mmol/L (8-16); CREATININE, SERUM 1.65 mg/dL (0.72-1.25); POTASSIUM 4.7 mmol/L (3.5-5.1)
--- NOTE | 2019-05-18 07:00 | NUR ---
Shift report given to oncoming nurse.
[2019-05-18] MEDS: INSULIN REGULAR, HUMAN 100 UNIT/1 ML 3ML VIAL SQ SCH ×4 (07:30→21:00)
[2019-05-18] MEDS: FERROUS SULFATE 325 MG TAB PO SCH ×2 (08:52→17:24)
[2019-05-18] MEDS: SODIUM BICARBONATE 650 MG TAB PO SCH ×3 (08:52→22:00)
[2019-05-18] MEDS: FOLIC ACID 1 MG TAB PO SCH (08:52)
[2019-05-18] MEDS: CARVEDILOL 12.5 MG TAB PO SCH ×2 (11:54→17:24)
[2019-05-18] MEDS: COLLAGENASE 5 GM TUBE TOP SCH ×2 (11:55→22:00)
--- NOTE | 2019-05-18 12:06 | Progress Note ---
DATE: 05/18/2019 SUBJECTIVE: The patient seen, doing better. Denies history of fever, chills, nausea, or vomiting. OBJECTIVE: VITALS: Afebrile, pulse rate 76, respirations 18, blood pressure 168/88, and O2 saturation 100%. EXTREMITIES: Ulcerations to the right lower extremity still draining, there is still some foul but it is somewhat better, some granulation tissue noted. The plantar ulceration tracking to bone, also granulation tissue noted to the plantar lateral ulcer around the 5th metatarsal tuberosity. Also to the lateral aspect of the right talotibial joint is draining, but there is decreased edema and decreased cellulitis of right foot. LABORATORY DATA: Labs show a white blood cell count of 10.1, hemoglobin 9.0 with a platelet count of 319 ASSESSMENT: Multiple grade 3 and grade 4 ulcerations with osteomyelitis. PLAN: We will continue local wound care and IV antibiotics. We will continue to let the foot demarcate. The patient understands that this will be a slow process and that no guarantees can be given, he may still end up with a [id number] amputation if not responsive. We will continue Santyl followed by diluted wet-to-dry Betadine to all affected areas. JOHN Garza/IRAJ /[id number]
[2019-05-18] MEDS ORDERED: HYDRALAZINE HCL 20 MG/ML VIAL IV PRN (13:30)
[2019-05-18] MEDS: FUROSEMIDE 40 MG TAB PO SCH (15:37)
[2019-05-18] MEDS: ENALAPRIL MALEATE 10 MG TAB PO SCH (15:37)
[2019-05-18] MEDS: ENOXAPARIN SOD INJ 40 MG/0.4 ML SYR SC SCH (17:24)
--- NOTE | 2019-05-18 19:20 | NUR ---
Walking rounds performed. Patient is in no distress. Patient states pain is 3/10. Call wu within reach.
--- NOTE | 2019-05-18 19:22 | NUR ---
Patient received sitting up in bed. AAO x 4. No c/o pain. No signs of respiratory distress . Safety measures implemented. Patient instructed to call for assistance when needed. Call light within reach.
[2019-05-18] MEDS: INSULIN GLARGINE 100 UNITS/ML VIAL SC SCH (21:00)
[2019-05-19] VITALS (8 sets, daily range): BP systolic 146–185; BP diastolic 68–90
[2019-05-19] MEDS: VANCOMYCIN 1GM/NS 250 ML 250 ML IV SCH (01:40)
[2019-05-19] MEDS: MEROPENEM 500MG/ NS 50ML 50 ML IV SCH ×3 (02:30→17:28)
[2019-05-19] MEDS: MORPHINE SULFATE INJ 4 MG/ML INJ 1ML IV PRN ×5 (03:22→21:25)
--- NOTE | 2019-05-19 04:00 | NUR ---
Wound care performed per MD's orders . Moderate drainage sanguineous noted. Patient tolerated well.
[2019-05-19] MEDS: SODIUM CHLORIDE 0.9% 1000ML 1,000 ML IV SCH ×3 (05:00→21:00)
--- NOTE | 2019-05-19 07:08 | NUR ---
Walking rounds done. Shift report given to oncoming nurse regarding patient status.
--- NOTE | 2019-05-19 07:09 | NUR ---
bedside rounds done, received patient lying in bed with HOB up 45 degrees, AAOX4. denies pain at this time. call light within reach and instructed to call for assistance using call light.
[2019-05-19] MEDS: INSULIN REGULAR, HUMAN 100 UNIT/1 ML 3ML VIAL SQ SCH ×3 (07:30→17:42)
[2019-05-19] MEDS: FERROUS SULFATE 325 MG TAB PO SCH ×2 (08:35→17:28)
[2019-05-19] MEDS: CARVEDILOL 12.5 MG TAB PO SCH ×2 (08:35→17:28)
[2019-05-19] MEDS: ENALAPRIL MALEATE 10 MG TAB PO SCH (08:36)
[2019-05-19] MEDS: FOLIC ACID 1 MG TAB PO SCH (08:36)
[2019-05-19] MEDS: COLLAGENASE 5 GM TUBE TOP SCH ×2 (08:36→21:36)
[2019-05-19] MEDS: FUROSEMIDE 40 MG TAB PO SCH (08:36)
[2019-05-19] MEDS: SODIUM BICARBONATE 650 MG TAB PO SCH ×3 (08:36→21:10)
--- NOTE | 2019-05-19 10:55 | NUR ---
CM SPOKE TO DR. ASHRAF REGARDING DISCHARGE PLAN AND PLAN OF CARE. PATIENT CURRENTLY ON TWO IV ABX WITH CONFIRMED MRSA. PATIENT 38 YEARS OLD AND NOT HOME BOUND PRIOR TO HOSPITALIZATION SO DR. ASHRAF AT THIS TIME IS THINKING OUTPATIENT WOUND CARE CENTER. CM SPOKE TO BEDSIDE RN REGARDING PATIENT PLAN OF CARE. PER CARMEN ORY, PATIENT WOUND IS EXTENSIVE AND NEEDING DRESSING CHANGES 2/DAY. CM AND RN AGREED THAT IF ID, DR. SOFIA, WANTS TO PLACE PATIENT ON IV ABX FOR > [address] TERRY RESTRICTS AMBULATION FOR PATIENT, SHE WILL CALL DR. ASHRAF FOR LTAC ORDER. PENDING ROUNDS BY DR. TERRY AND DR. SOFIA FOR RECOMMENDATIONS BEFORE CALLING DR. ASHRAF FOR DISCHARGE PLAN ORDERS.
--- NOTE | 2019-05-19 15:18 | NUR ---
ESTIVEN SPOKE TO DR. SOFIA REGARDING DISCHARGE PLAN AND PLAN OF CARE FROM ID POINT OF VIEW. PATIENT WITH OSTEOMYELITIS AND WILL NEED IV ABX FOR 6 WEEKS. BEDSIDE RN SPOKE TO DR. TERRY REGARDING WEIGHT BEARING STATUS. AT THIS TIME PATIENT IS NON- WEIGHTBEARING. PATIENT WITH QUALIFICATIONS FOR TYPESET[employer]S [employer] [facility] C[facility] PLACEMENT FOR EXTENSIVE WOUND CARE TREATMENTS 2/DAY AND IV ABX X6 WEEKS. BEDSIDE RN MANUELA PAGED DR. ASHRAF REGARDING ORDER FOR TYPESETTERS PRINTER PLACEMENT, PENDING RETURN CALL FOR ORDERS.
[2019-05-19] MEDS: ENOXAPARIN SOD INJ 40 MG/0.4 ML SYR SC SCH (17:28)
[2019-05-19] MEDS: INSULIN GLARGINE 100 UNITS/ML VIAL SC SCH (21:00)
[2019-05-20] VITALS (9 sets, daily range): BP systolic 113–190; BP diastolic 63–87
[2019-05-20] MEDS: INSULIN REGULAR, HUMAN 100 UNIT/1 ML 3ML VIAL SQ SCH ×5 (00:06→23:22)
[2019-05-20] MEDS: VANCOMYCIN 1GM/NS 250 ML 250 ML IV SCH (01:02)
[2019-05-20] MEDS: MORPHINE SULFATE INJ 4 MG/ML INJ 1ML IV PRN ×5 (02:42→21:40)
[2019-05-20] MEDS: MEROPENEM 500MG/ NS 50ML 50 ML IV SCH ×3 (02:42→17:16)
[2019-05-20] MEDS: SODIUM CHLORIDE 0.9% 1000ML 1,000 ML IV SCH (02:42)
--- NOTE | 2019-05-20 07:08 | NUR ---
received pt lying in bed with eyes open and TV on. Resp even and unlabored. call light within reach.
[2019-05-20] MEDS: ENALAPRIL MALEATE 10 MG TAB PO SCH (08:58)
[2019-05-20] MEDS: CARVEDILOL 12.5 MG TAB PO SCH ×2 (08:58→17:16)
[2019-05-20] MEDS: SODIUM BICARBONATE 650 MG TAB PO SCH ×3 (08:58→21:40)
[2019-05-20] MEDS: FOLIC ACID 1 MG TAB PO SCH (08:58)
[2019-05-20] MEDS: FUROSEMIDE 40 MG TAB PO SCH (08:58)
[2019-05-20] MEDS: FERROUS SULFATE 325 MG TAB PO SCH ×2 (08:58→17:15)
[2019-05-20] MEDS: COLLAGENASE 5 GM TUBE TOP SCH ×2 (08:58→22:15)
--- NOTE | 2019-05-20 09:03 | Consultation ---
DATE OF CONSULTATION: 05/19/2019 SUBJECTIVE: The patient is seen at bedside. Doing better. Denies any history of fever, chills, nausea, or vomiting. OBJECTIVE: VITAL SIGNS: Afebrile, pulse rate 89, respirations 19, blood pressure 169/89, O2 saturation 98%. EXTREMITIES: Ulcerations to the right lower extremity starting to heal. Some granulation tissue noted. Minimal to no foul smell with decreased drainage. LABORATORY DATA: Labs show white blood cell count of 10.2. ASSESSMENT: Multiple grade 3 to 4 ulcers with osteomyelitis of the right foot with cellulitis and pitting edema. PLAN: We will continue local wound care with IV antibiotics. The patient will need IV antibiotics for at least 4 to 6 weeks. Continue local wound care in the hospital. The patient understands no warrantees or guarantees can be given. If not responsive, may need further surgery, which may include partial amputation of foot or even [id number]-[id number]-oabi amputation if not responsive. JOHN Garza/IRAJ /[id number]
--- NOTE | 2019-05-20 15:15 | Progress Note ---
DATE: 05/20/2019 SUBJECTIVE: Denies any dyspnea. Has minimal swelling. Denies any trouble with nausea or vomiting. OBJECTIVE: VITAL SIGNS: Temperature 97.7, blood pressure is 113/63, pulse 85. CHEST: Clear. EXTREMITIES: Trace edema. SKIN: Right foot in a bandaged secondary to open wound. NEURO: Appears to be alert, appropriate. CARDIAC: Normal heart tones. No gross CHF at this time. LABORATORY DATA: Hemoglobin is 9, potassium is 4.7, serum CO2 is 22, creatinine is 1.65, down from admission creatinine of 2.81. ASSESSMENT: 1. Chronic kidney disease, stage 3. 2. Diabetic nephropathy about 3 g proteinuria. 3. Acute tubular necrosis, improved. 4. Underlying diabetic foot with osteomyelitis. 5. Cellulitis. PLAN: From renal standpoint, continue conservative management. He is already on an AMARIS inhibitor and low-dose diuretic as well as sodium bicarbonate. We will continue to monitor blood pressure. Titrate medicines as needed. As of now, it seems to be coming down. We will follow along. MD KAUSHIK JimenesK/AZUCENAL /[id number]
[2019-05-20] MEDS: ACETAMINOPHEN 325 MG TAB PO PRN (16:06)
[2019-05-20] MEDS: ENOXAPARIN SOD INJ 40 MG/0.4 ML SYR SC SCH (17:15)
--- NOTE | 2019-05-20 20:15 | Progress Note ---
DATE: 05/20/2019 SUBJECTIVE: The patient is seen at bedside, doing better. Denies any history of fever, chills, nausea, or vomiting. Still has some swelling and redness, and increased skin temperature to right leg and foot. OBJECTIVE: VITAL SIGNS: Afebrile, pulse rate 85, respirations 18, blood pressure 113/63, and O2 saturation 96%. LABORATORY DATA: White blood cell count dropping to 10.2. Still has some purulent drainage noted to multiple ulcerations to the right lower extremity. There is decreased edema from 0 purulent drainage, but decreased foul smell. Granulation tissue noted to multiple ulcerations to the right lower extremity with [id number] amount of swelling noted to the right foot when compared to the left. ASSESSMENT: Multiple grade 4 ulcers, cellulitis with deep space infection. PLAN: We will continue IV antibiotics. Continue local wound care with Santyl followed by diluted wet-to-dry. Continue meropenem IV and vancomycin. Continue to follow the patient, be strictly nonweightbearing until the infection subsides. Understands, it is possible partial amputation of foot may still need to be done if not responsive to local wound care and conservative treatment. The patient may be transferred to [facility] for IV antibiotics for the next 4-6 weeks. JOHN Garza/IRAJ /[id number]
[2019-05-20] MEDS: INSULIN GLARGINE 100 UNITS/ML VIAL SC SCH (21:40)
--- NOTE | 2019-05-20 22:30 | NUR ---
DRESSING CHANGED ON RIGHT FOOT. WOUND IS CLEAN AND MINIMAL DRAINAGE IS NOTED. PATIENT VOICED NO COMPLAINTS OF PAIN AT THIS TIME.
[2019-05-21 00:31] VITALS: BP 131/62
[2019-05-21] MEDS: ACETAMINOPHEN/CODEINE 300MG - 30MG TAB PO PRN (01:05)
[2019-05-21] MEDS: VANCOMYCIN 1GM/NS 250 ML 250 ML IV SCH (01:55)
[2019-05-21] MEDS ORDERED: MORPHINE SULFATE INJ 4 MG/ML INJ 1ML IV ONE (02:18)
--- NOTE | 2019-05-21 02:53 | NUR ---
UPON MAKING ROUNDS, PATIENT IS RESTING IN BED. NO RESPIRATORY DISTRESS NOTED. PATIENT VOICED THAT HIS PAIN IS AT A 3 AFTER TAKING PAIN MEDICATION. BED IN LOWEST POSITION, SIDE RAILS ARE UP, CALL LIGHT WITHIN EASY REACH, WILL CONTINUE TO MONITOR.
[2019-05-21] MEDS: MEROPENEM 500MG/ NS 50ML 50 ML IV SCH ×3 (03:20→18:09)
[2019-05-21 06:28] VITALS: BP 152/74
[2019-05-21 07:03] LABS: ALBUMIN 1.8 g/dL (3.5-5.0); ALBUMIN/GLOBULIN RATIO 0.4 (0.8-2.0); ANION GAP 11.5 mmol/L (8-16); CREATININE, SERUM 1.47 mg/dL (0.72-1.25); MAGNESIUM 1.6 MG/DL (1.3-2.1); POTASSIUM 4.5 mmol/L (3.5-5.1)
--- NOTE | 2019-05-21 07:20 | NUR ---
PATIENT IN BED RESTING WITH NO DISTRESS. DRESSING INTACT TO RIGHT FOOT, SWELLING NOTED, ELEVATED ON PILLOW. BED IN LOWER POSITION, CALL LIGHT AT REACH.
[2019-05-21] MEDS: INSULIN REGULAR, HUMAN 100 UNIT/1 ML 3ML VIAL SQ SCH ×4 (07:30→21:50)
[2019-05-21] MEDS: MORPHINE SULFATE INJ 4 MG/ML INJ 1ML IV PRN ×4 (08:55→21:50)
[2019-05-21] MEDS: FERROUS SULFATE 325 MG TAB PO SCH ×2 (09:00→17:27)
[2019-05-21] MEDS: SODIUM BICARBONATE 650 MG TAB PO SCH ×3 (09:02→21:50)
[2019-05-21] MEDS: FUROSEMIDE 40 MG TAB PO SCH (09:02)
[2019-05-21] MEDS: FOLIC ACID 1 MG TAB PO SCH (09:02)
[2019-05-21] MEDS: CARVEDILOL 12.5 MG TAB PO SCH ×2 (09:02→17:27)
[2019-05-21] MEDS: ENALAPRIL MALEATE 10 MG TAB PO SCH (09:02)
[2019-05-21] MEDS: COLLAGENASE 5 GM TUBE TOP SCH ×3 (11:06→21:50)
--- NOTE | 2019-05-21 11:15 | NUR ---
DRESSING CHANGED TO RIGHT FOOT ORDERED. PATIENT TOLERATED PROCEDURE WELL. SITTING UP IN BED TALKING ON THE PHONE, CALL LIGHT AT REACH.
--- NOTE | 2019-05-21 11:54 | Progress Note ---
DATE: 05/21/2019 SUBJECTIVE: The patient seen at bedside, accompanied by family member, doing better. Denying any history of fever, chills, nausea, or vomiting. OBJECTIVE: VITALS: Afebrile, pulse 83, respirations 17, blood pressure 152/74, and O2 saturation 98%. EXTREMITIES: Ulcerations to the right lower extremity continue to heal, some drainage still present to the lateral ankle ulcer, also the ulcer to the plantar aspect of the right foot. Ulcers are more than 4-5 cm in diameter in lateral aspect of right ankle, 2-3 cm in lateral plantar aspect of right foot with 2-3 diameter. Sub 5th metatarsal tuberosity. Some granulation tissue starting to appear. There is also some cellulitis and edema of right lower extremity compared to the left with pedal pulses palpable. LABORATORY DATA: Labs show a white blood cell count of 10.1. ASSESSMENT: Multiple grade 3 and 4 ulcerations, cellulitis, osteomyelitis with diabetic neuropathy. PLAN: The patient will need IV antibiotics for the next 3-4 weeks possible 6. We will continue local wound care. Continue to treat conservatively for now. The patient aware if not responsive, partial amputation of foot may need to be done even below-knee amputation if not responsive. JOHN Garza/IRAJ /[id number]
[2019-05-21 13:04] VITALS: BP 161/88
--- NOTE | 2019-05-21 15:40 | NUR ---
Visit made by the Spiritual Care Department Pastoral Visitor, Everardo Bray. PV provided pastoral presence, hospitality, and supportive listening. Pastoral Visitor informed pt/family of the scope of Regional Office Coordinator Services and availability. EVELINE AGUAYO Junior Manufacturing Engineer Spiritual Care Department O: [phone] Pager: [phone] ([phone] calling from)
--- NOTE | 2019-05-21 15:48 | NUR ---
URINAL EMPTIED WITH 650CC OF CLEAR YELLOW URINE, CLEANSED AND PLACED AT REACH. CALL LIGHT AT REACH.
[2019-05-21 17:01] VITALS: BP 125/82
[2019-05-21] MEDS: ENOXAPARIN SOD INJ 40 MG/0.4 ML SYR SC SCH (17:27)
[2019-05-21 21:18] VITALS: BP 155/81
[2019-05-21 21:50] VITALS: BP 155/81
[2019-05-21] MEDS: INSULIN GLARGINE 100 UNITS/ML VIAL SC SCH (21:50)
--- NOTE | 2019-05-21 21:50 | NUR ---
PATIENT IN BED RESTING WITH NO RESPIRATORY DISTRESS NOTED. DRESSING INTACT TO RIGHT FOOT, MINIMAL DRAINAGE OBSERVED. SWELLING NOTED, ELEVATED ON PILLOW. BED IN LOWEST POSITION AND LOCKED, CALL LIGHT AT REACH, WILL CONTINUE TO MONITOR.
[2019-05-22] VITALS (8 sets, daily range): BP systolic 150–180; BP diastolic 82–98
[2019-05-22] MEDS: VANCOMYCIN 1GM/NS 250 ML 250 ML IV SCH (00:15)
[2019-05-22] MEDS: MEROPENEM 500MG/ NS 50ML 50 ML IV SCH ×3 (01:32→17:22)
--- NOTE | 2019-05-22 01:33 | NUR ---
PATIENT RESTING IN BED BOTH EYES CLOSED, NO DISTRESS NOTED. BOTH SIDE RAILS ARE UP, BED LOCKED AND IN LOWEST POSITION, CALL LIGHT WITHIN REACH, WILL CONTINUE TO MONITOR.
[2019-05-22] MEDS: MORPHINE SULFATE INJ 4 MG/ML INJ 1ML IV PRN ×5 (02:39→21:45)
[2019-05-22 05:49] LABS: BASOPHILS % 0.4 % (0.0-1.0); EOSINOPHILS # (AUTO) 0.1 (0.0-0.4); EOSINOPHILS % 1.3 % (0.0-6.0); HEMATOCRIT 25.4 % (38.2-49.6); HEMOGLOBIN 8.3 g/dL (14.0-18.0); LYMPHOCYTES # (AUTO) 1.5 (1.0-3.2); LYMPHOCYTES % 22.4 % (18.0-39.1); MEAN CORPUSCULAR HEMOGLOBIN 29.1 pg (28-32); MEAN CORPUSCULAR HGB CONC 32.7 g/dL (31-35); MEAN CORPUSCULAR VOLUME 89.1 fL (81-99); MONOCYTES # (AUTO) 0.6 (0.2-0.8); MONOCYTES % 8.8 % (4.4-11.3); NEUTROPHILS # (AUTO) 4.5 (2.1-6.9); NEUTROPHILS % 65.9 % (38.7-80.0); PLATELET COUNT 381 x10e3/uL (140-360); RED BLOOD COUNT 2.85 x10e6/uL (4.3-5.7); RED CELL DISTRIBUTION WIDTH 13.6 % (11.7-14.4)
[2019-05-22 06:21] LABS: ALBUMIN 1.8 g/dL (3.5-5.0); ALBUMIN/GLOBULIN RATIO 0.4 (0.8-2.0); ANION GAP 10.7 mmol/L (8-16); CALCIUM 8.1 mg/dL (8.4-10.2); CREATININE, SERUM 1.38 mg/dL (0.72-1.25); POTASSIUM 4.7 mmol/L (3.5-5.1)
[2019-05-22] MEDS: INSULIN REGULAR, HUMAN 100 UNIT/1 ML 3ML VIAL SQ SCH ×4 (07:30→21:00)
[2019-05-22] MEDS: SODIUM BICARBONATE 650 MG TAB PO SCH (09:42)
[2019-05-22] MEDS: FUROSEMIDE 40 MG TAB PO SCH (09:42)
[2019-05-22] MEDS: FOLIC ACID 1 MG TAB PO SCH (09:42)
[2019-05-22] MEDS: CARVEDILOL 12.5 MG TAB PO SCH ×2 (09:42→17:21)
[2019-05-22] MEDS: FERROUS SULFATE 325 MG TAB PO SCH ×2 (09:42→17:21)
[2019-05-22] MEDS: ENALAPRIL MALEATE 10 MG TAB PO SCH ×2 (09:42→17:22)
[2019-05-22] MEDS: COLLAGENASE 5 GM TUBE TOP SCH ×2 (10:07→21:10)
--- NOTE | 2019-05-22 14:41 | NUR ---
CM SPOKE TO PATIENT AT BEDSIDE REGARDING DISCHARGE PLAN. PATIENT AWARE OF SNF ACUTE CARE PLACEMENT. PATIENT GIVEN CHOICES OF CAPTURE MANAGER ACUTE CARE PLACEMENTS. PATIENT SIGNED CHOICE FOR [facility]. [facility] LIAISON MARNIE NOTIFIED AND PICKING UP CLINICAL. PENDING INSURANCE AUTH AND BED FOR TRANSFER. [facility] Address: [address] , [place] [address] MOT INITIATED AND GIVEN TO SENIOR SECURITY ANALYST SHEMAR.
--- NOTE | 2019-05-22 14:54 | Progress Note ---
DATE: 05/22/2019 SUBJECTIVE: The patient is seen at bedside accompanied by some friends, doing well, in good spirits. Denying any history of fever, chills, nausea, or vomiting. OBJECTIVE: VITAL SIGNS: Afebrile. Pulse rate 80, respirations 19, blood pressure 180/98, and O2 saturation 96%. EXTREMITIES: Ulcerations to the right lower extremity are improving. Some granulation tissue noted tracking to bone. Still some water drainage and foul smell present. Decreased edema of the right lower extremity with still very swollen compared to contralateral side. LABORATORY DATA: White blood cell count 6.8, hemoglobin 8.3 with a platelet count of 381. ASSESSMENT: Osteomyelitis with multiple grade 3/4 ulceration with peripheral neuropathy. PLAN: The patient will need 4 more weeks of IV antibiotics. Continue local wound care. The patient seemed to respond to conservative care for now. Continue offloading, Santyl followed by diluted wet-to-dry. JOHN Garza/IRAJ /[id number]
[2019-05-22] MEDS: PREGABALIN 75 MG CAP PO SCH (17:21)
[2019-05-22] MEDS: ENOXAPARIN SOD INJ 40 MG/0.4 ML SYR SC SCH (17:22)
[2019-05-22] MEDS: INSULIN GLARGINE 100 UNITS/ML VIAL SC SCH (22:15)
[2019-05-23] VITALS (9 sets, daily range): BP systolic 119–158; BP diastolic 64–85
[2019-05-23] MEDS: VANCOMYCIN 1GM/NS 250 ML 250 ML IV SCH (00:28)
[2019-05-23] MEDS ORDERED: SODIUM CHLORIDE 0.9% 250ML 250 ML ONE (00:30)
[2019-05-23] MEDS: MORPHINE SULFATE INJ 4 MG/ML INJ 1ML IV PRN ×6 (01:53→22:30)
[2019-05-23] MEDS: MEROPENEM 500MG/ NS 50ML 50 ML IV SCH ×2 (02:09→09:13)
--- NOTE | 2019-05-23 07:00 | NUR ---
received am report from RN, morning rounds done. pt is awake,alert in bed, no s/s of distress. pt has no complaints at this time. call light within reach.
[2019-05-23] MEDS: INSULIN REGULAR, HUMAN 100 UNIT/1 ML 3ML VIAL SQ SCH ×4 (09:20→22:13)
[2019-05-23] MEDS: FOLIC ACID 1 MG TAB PO SCH (09:26)
[2019-05-23] MEDS: FUROSEMIDE 40 MG TAB PO SCH (09:26)
[2019-05-23] MEDS: CARVEDILOL 12.5 MG TAB PO SCH ×2 (09:26→17:00)
[2019-05-23] MEDS: FERROUS SULFATE 325 MG TAB PO SCH ×2 (09:26→17:00)
[2019-05-23] MEDS: PREGABALIN 75 MG CAP PO SCH ×2 (09:27→17:00)
[2019-05-23] MEDS: ENALAPRIL MALEATE 10 MG TAB PO SCH ×2 (09:27→17:00)
[2019-05-23] MEDS: COLLAGENASE 5 GM TUBE TOP SCH (09:30)
--- NOTE | 2019-05-23 09:30 | NUR ---
wound care done according to orders.
[2019-05-23] MEDS: ONDANSETRON HCL INJ 2MG/ML 2ML 2 MG/ML VIAL IV PRN ×4 (10:10→22:30)
--- NOTE | 2019-05-23 12:50 | Progress Note ---
DATE: 05/23/2019 SUBJECTIVE: The patient is seen at bedside, doing better. Awaiting to be transferred to the [facility]. OBJECTIVE: VITAL SIGNS: Afebrile. Pulse rate 89, respirations 18, blood pressure 121/73, O2 saturation 99%. EXTREMITIES: Ulcerations to the left lower extremity, improving. Granulation tissue noted down to bone. Some drainage noted to the plantar ulceration. ASSESSMENT: Osteomyelitis with multiple grade 3 and 4 ulcerations with cellulitis and edema, right foot. PLAN: We will need IV antibiotics for the next 4-5 weeks. Continue local wound care. We will try to salvage the foot. No guarantees can be given. JOHN Garza/IRAJ /[id number]
[2019-05-23] MEDS: CEFEPIME 1GM/NS 0.9% 50 ML 50 ML IV SCH ×2 (14:05→22:13)
[2019-05-23] MEDS: ENOXAPARIN SOD INJ 40 MG/0.4 ML SYR SC SCH (17:00)
--- NOTE | 2019-05-23 19:13 | NUR ---
WALKING ROUNDS PERFORMED, RECEIVED PT LAYING SEMI FOWLERS IN BED, AAOX3, RR EVEN AND NON-LABORED, ON ROOM AIR. NO S/SX OF DISTRESS NOTED. DRESSING TO 9R) FOOT NOTED TO BE CDI. LEFT PT LAYING SEMI FOWLERS IN BED, BED IN LOW LOCKED POSITION, SIDE RAILS UPX2, CALL LIGHT AND PHONE WITHIN REACH.
[2019-05-23] MEDS: INSULIN GLARGINE 100 UNITS/ML VIAL SC SCH (22:13)
[2019-05-24] VITALS (8 sets, daily range): BP systolic 116–156; BP diastolic 66–89
[2019-05-24] MEDS: COLLAGENASE OINTMENT 30 GM TUBE TOP SCH ×3 (00:54→21:07)
[2019-05-24] MEDS: MORPHINE SULFATE INJ 4 MG/ML INJ 1ML IV PRN ×6 (02:54→23:56)
[2019-05-24] MEDS: CEFEPIME 1GM/NS 0.9% 50 ML 50 ML IV SCH ×3 (05:26→21:07)
[2019-05-24 05:30] LABS: BASOPHILS % 0.5 % (0.0-1.0); EOSINOPHILS # (AUTO) 0.1 (0.0-0.4); EOSINOPHILS % 1.6 % (0.0-6.0); HEMOGLOBIN 8.1 g/dL (14.0-18.0); LYMPHOCYTES # (AUTO) 1.6 (1.0-3.2); LYMPHOCYTES % 25.6 % (18.0-39.1); MEAN CORPUSCULAR HEMOGLOBIN 29.3 pg (28-32); MEAN CORPUSCULAR HGB CONC 32.4 g/dL (31-35); MEAN CORPUSCULAR VOLUME 90.6 fL (81-99); MONOCYTES # (AUTO) 0.6 (0.2-0.8); NEUTROPHILS # (AUTO) 3.8 (2.1-6.9); NEUTROPHILS % 61.3 % (38.7-80.0); PLATELET COUNT 387 x10e3/uL (140-360); RED BLOOD COUNT 2.76 x10e6/uL (4.3-5.7); RED CELL DISTRIBUTION WIDTH 13.7 % (11.7-14.4)
[2019-05-24 05:57] LABS: ALBUMIN/GLOBULIN RATIO 0.4 (0.8-2.0); ANION GAP 11.4 mmol/L (8-16); CALCIUM 8.3 mg/dL (8.4-10.2); CREATININE, SERUM 1.81 mg/dL (0.72-1.25); POTASSIUM 5.4 mmol/L (3.5-5.1)
[2019-05-24] MEDS: INSULIN REGULAR, HUMAN 100 UNIT/1 ML 3ML VIAL SQ SCH ×4 (07:30→21:08)
[2019-05-24] MEDS: FERROUS SULFATE 325 MG TAB PO SCH ×2 (09:28→17:24)
[2019-05-24] MEDS: PREGABALIN 75 MG CAP PO SCH ×2 (09:28→17:24)
[2019-05-24] MEDS: CARVEDILOL 12.5 MG TAB PO SCH ×2 (09:28→17:24)
[2019-05-24] MEDS: FOLIC ACID 1 MG TAB PO SCH (09:28)
[2019-05-24] MEDS: FUROSEMIDE 40 MG TAB PO SCH (09:28)
[2019-05-24] MEDS: ENALAPRIL MALEATE 10 MG TAB PO SCH (09:28)
[2019-05-24] MEDS: VANCOMYCIN HCL 1.25 GM in SODIUM CHLORIDE 0.9% 250ML 250 ML IV SCH ×2 (12:30→23:56)
--- NOTE | 2019-05-24 15:09 | NUR ---
Nutrition Follow-up Note RD Recommendation for Physician: - Continue ADA diet as ordered - RD provided education on diabetic diet as consulted. Plan of Care: Patient has been screened and assessed for nutrition risk. At this time, the patient does not pose any nutrition risk. No further nutrition intervention is warranted at this time. Will re-evaluate if consulted by medical staff. Nutrition reason for involvement: Follow up Primary Diagnose(s): Right foot osteomyelitis, right foot abscess, type 1 diabetes mellitus, acute on chronic renal failure, hyperglycemia, and anemia of chronic disease PMH: insulin-dependent diabetes, hypertension Ht: 67in Wt: 200lb BMI: 31.3kg/m2 IBW: 148lb +/- 10% RD Assessment: (05/24) Pt was discussed during AM rounds. Pending placement. Visited pt in the room. Pt reported good appetite with 100% observed lunch intake. No GI complains reported. Current diet is appropriate and adequate. (05/17) Chart reviewed. Labs and meds reviewed. 38yo M, who was admitted for R diabetic foot ulcer. BG today 140 240. HbA1c at 7.1%. + wound culture. Wound care following. Visited pt in the room. Pt reported good appetite without any GI complains. Pt denied any chewing or swallowing difficulty. His weight has stayed about the same. Pt stated I watch what I eat at home and my blood sugar usually runs at 160. Explained that elevated blood sugar is most likely due to lack of physical activity in the hospital and infection. Encouraged blood glucose control through diet and physical activity as well as protein foods to aid with wound healing. All questions have been answered. Current Diet: ADA Malnutrition Evaluation (05/17/2019) The patient does not meet criteria for a specified degree of malnutrition at this time. Will re-evaluate at follow-up as appropriate. Diet Education Needs Assessment: Diet education indicated, pt is agreeable. Learner(s): pt Time spent: 20minutes Barriers: No barriers identified. Cultural/Language Modifications: No cultural/language modifications noted. Pt speaks Sinhala. Readiness: Acceptance Method: Handouts, discussion Topics: Carbohydrate counting handouts, meal planning tips, servings/portion sizes Understanding/Compliance: Expect fair understanding/compliance from pt. Will benefit from reinforcement. All questions have been answered. Nutrition Care Level: low Signed: Angelina Cotter, MS, RD, LD
--- NOTE | 2019-05-24 15:41 | NUR ---
CM SPOKE TO DR. TERRY AND BEDSIDE RN REGARDING PATIENT PLAN OF CARE. PATIENT ACCEPTED TO [facility]. PER DR. TERRY PATIENT TO STAY UNTIL TOMORROW AND TRANSFER AFTER I & D IS DONE AT BEDSIDE.
--- NOTE | 2019-05-24 15:56 | Progress Note ---
DATE: 05/24/2019 SUBJECTIVE: The patient is at bedside, doing somewhat better. Still some drainage through the ulceration of the right lower extremity. Positive edema, right lower extremity compared to the left. Denying any history of fever, chills, nausea, or vomiting. OBJECTIVE: VITAL SIGNS: Afebrile. Pulse rate 78, respirations 18, blood pressure 116/66, O2 saturation 98%. LABORATORY DATA: Labs show white blood cell count of 6.13, hemoglobin 8.1 with a platelet count of 387. Multiple ulcerations noted to the right lower extremity down to muscle very close to bone lateral aspect of the right talotibial joint measuring more than 4-5 cm in diameter. Ulceration also noted to the plantar aspect of the right foot down to muscle and bone with multiple ulcerations also down to the muscle and subcutaneous tissue with decreased foul smell noted to the right lower extremity. ASSESSMENT: Osteomyelitis with multiple grade 3 and grade 4 ulcerations, responding to local wound care and IV antibiotics. PLAN: We will continue local wound care and IV antibiotics. The patient's ulcerations will be debrided tomorrow to stimulate healing quicker rate and remove necrotic tissue. The patient understands no warrantees or guarantees can be given, may still need an amputation if not responsive. JOHN Garza/AZUCENAL /[id number]
[2019-05-24] MEDS ORDERED: SOD POLYSTYRENE SULFONATE SUSP 15 GM/60 ML BTL PO ONE (16:48)
[2019-05-24] MEDS ORDERED: LACTULOSE SYRUP 20 GM/30 ML UDC PO ONE (17:00)
[2019-05-24] MEDS: ENOXAPARIN SOD INJ 40 MG/0.4 ML SYR SC SCH (17:24)
[2019-05-24] MEDS ORDERED: NIFEDIPINE CR 30 MG TAB PO SCH (21:00)
[2019-05-24] MEDS: INSULIN GLARGINE 100 UNITS/ML VIAL SC SCH (21:09)
[2019-05-25 00:24] VITALS: BP 135/68
[2019-05-25] MEDS: MORPHINE SULFATE INJ 4 MG/ML INJ 1ML IV PRN ×3 (04:00→12:21)
[2019-05-25 05:26] VITALS: BP 122/60
[2019-05-25] MEDS: CEFEPIME 1GM/NS 0.9% 50 ML 50 ML IV SCH ×2 (05:40→13:48)
[2019-05-25 06:12] LABS: ANION GAP 9.8 mmol/L (8-16); CREATININE, SERUM 1.74 mg/dL (0.72-1.25); POTASSIUM 4.8 mmol/L (3.5-5.1)
[2019-05-25] MEDS: INSULIN REGULAR, HUMAN 100 UNIT/1 ML 3ML VIAL SQ SCH ×2 (07:30→11:30)
[2019-05-25 08:10] VITALS: BP 115/82
[2019-05-25 08:32] VITALS: BP 115/69
[2019-05-25] MEDS: PREGABALIN 75 MG CAP PO SCH (08:50)
[2019-05-25] MEDS: FUROSEMIDE 40 MG TAB PO SCH (08:50)
[2019-05-25] MEDS: FERROUS SULFATE 325 MG TAB PO SCH (08:50)
[2019-05-25] MEDS: CARVEDILOL 12.5 MG TAB PO SCH (08:50)
[2019-05-25] MEDS: FOLIC ACID 1 MG TAB PO SCH (08:50)
[2019-05-25] MEDS: COLLAGENASE OINTMENT 30 GM TUBE TOP SCH (08:51)
[2019-05-25] MEDS ORDERED: ENALAPRIL MALEATE 10 MG TAB PO SCH (09:00)
--- NOTE | 2019-05-25 09:41 | NUR ---
paged in regards to d/c orders to transfer patient to LTAC today.
--- NOTE | 2019-05-25 11:52 | Progress Note ---
DATE: 05/25/2019 SUBJECTIVE: The patient seen at bedside, doing somewhat better. Denying history of fever, chills, nausea, or vomiting. OBJECTIVE: VITALS: Afebrile, pulse rate 78, respirations 18, blood pressure 116/82, O2 saturation 99%. EXTREMITIES: Multiple ulcerations noted to the right lower extremity tracking to muscle and bone both plantarly and laterally overlying the plantar aspect of the right foot and lateral aspect of the right talotibial joint. Ulcers are measuring approximately 2.5 to 3 cm in diameter to plantar aspect of the left lower extremity and more than 4-5 cm in diameter to lateral aspect of right foot with multiple grade 4 ulcerations to plantar lateral aspect of right lower extremity measuring less than 2 cm in diameter. Dorsal ulceration healing. Fourth toe is still viable with decreased cellulitis. Positive edema noted right lower extremity compared to the left. LABORATORY DATA: Labs noted. Has a white blood cell count of 6.13, hemoglobin 8.1 with a platelet count of 387. ASSESSMENT: Osteomyelitis of right foot with a grade 4 ulcer to the lateral aspect of the right talotibial joint, grade 2 ulcer to plantar aspect of left foot with multiple grade 4 ulcerations. PLAN: After proper consent of the patient under no anesthesia secondary to his severe peripheral neuropathy, sharp excisional debridement of the ulcers were carried down to bone and muscle respectively. Devitalized tissue sharply excised until good viable bleeding tissue was achieved. Deep cultures were taken for aerobic and anaerobic growth. Sterile dressing was applied after sharp excisional debridement with the use of a sterile 10 blade consisting of Santyl followed by diluted wet-to-dry Betadine. We will continue IV antibiotics for at least 3-4 more weeks. The patient will be transferred to [facility]. Continue local wound care and IV antibiotics to try to salvage the foot and leg. The patient understands no warrantees or guarantees can be given. The patient tolerated both debridements well. JOHN Garza/AZUCENAL /[id number]
[2019-05-25 12:09] VITALS: BP 129/71
[2019-05-25] MEDS: VANCOMYCIN HCL 1.25 GM in SODIUM CHLORIDE 0.9% 250ML 250 ML IV SCH (12:10)
--- NOTE | 2019-05-25 13:02 | NUR ---
DISCHARGE DISPOSITION PATIENT TO TRANSFER TO [facility] H[facility]ITAL: [facility] Address: [address], [place] [address] CALL REPORT: ROOM NUMBER [id number] ACCEPTING MD: DR. Quinton ASHRAF AOS: ALISON MARY, ADVERTISING DIRECTOR CALLED TO BY ASSONET LIAISON: MARNIE GOYALY PATIENT REQUESTED AMBULANCE BE THROUGH HIS INSURANCE. BEDSIDE RN NOTIFIED OF ROOM ASSIGNMENT. MOT COMPLETED AND SIGNED.
--- NOTE | 2019-05-25 13:20 | NUR ---
called report to [facility] spoke with Julia nurse. patient to go to room 310.
--- NOTE | 2019-05-25 15:59 | NUR ---
patient discharged via EMS to transfer to [facility]. family including at bedside to collect patients belongings. IV to left AC left in place for continuation of IV antibiotics.
[2019-05-25 16:05] VITALS: BP 129/59
--- NOTE | 2019-05-25 16:18 | Discharge Summary ---
He is a 38-year-old male, patient of mine, who is being transferred to [place] for further continuous care. The patient was admitted with complaint of right foot very foul-smelling wound and abscess and severe pain. ADMITTING IMPRESSION/DIAGNOSES: Right foot diabetic ulcer with osteomyelitis and abscess with peripheral arterial disease, worsening kidney disease, acute on chronic renal failure, type 1 diabetes mellitus, and anemia of chronic disease. HOSPITAL COURSE SUMMARY: The patient was admitted with above diagnosis. The patient was seen by Cardiology, Renal, Podiatry and ID. The patient was given IV antibiotic, Merrem and vancomycin. Wound debridement was done in the OR by Dr. Palm. The patient had arterial Doppler done, which was abnormal, so angiogram was done and the patient has below-knee disease which is not severe and that does not need any intervention. The patient's renal function had improved. The patient remained anemic. The patient has high potassium, so Lasix was given and enalapril was decreased. Now upon stabilization, the patient is being transferred to the [facility] for continuous wound care and IV antibiotics, the patient needs another 36 days of IV antibiotics, cefepime and vancomycin. MD LUIS Echeverria/IRAJ /[id number]
== END 2019-05-25 18:28 | DRG 629 ==
LOC: ER 22:57 → ERHOLD 05-14 00:32 → MED/SURG2 05-14 01:12
PROVIDERS: ADMIT Internal Medicine; ATTEND Internal Medicine
PROC: 0KBV0ZZ Excision of Right Foot Muscle, Open Approach (ICD-10-PCS; 2019-05-16)
PROC: 30233N1 Transfusion of Nonautologous Red Blood Cells into Peripheral Vein, Percutaneous Approach (ICD-10-PCS; 2019-05-16)
PROC: 0QBQ0ZZ Excision of Right Toe Phalanx, Open Approach (ICD-10-PCS; principal; 2019-05-16 06:45)
PROC: B41D1ZZ Fluoroscopy of Aorta and Bilateral Lower Extremity Arteries using Low Osmolar Contrast (ICD-10-PCS; 2019-05-17)
DX: E10.69 Type 1 diabetes mellitus with other specified complication (principal); M86.171 Other acute osteomyelitis, right ankle and foot; L02.611 Cutaneous abscess of right foot; E87.2 Acidosis; E87.1 Hypo-osmolality and hyponatremia; E10.621 Type 1 diabetes mellitus with foot ulcer; Z79.4 Long term (current) use of insulin; E10.22 Type 1 diabetes mellitus with diabetic chronic kidney disease; D50.9 Iron deficiency anemia, unspecified; I12.9 Hypertensive chronic kidney disease with stage 1 through stage 4 chronic kidney disease, or unspecified chronic kidney disease; N18.3 Chronic kidney disease, stage 3 (moderate); E10.21 Type 1 diabetes mellitus with diabetic nephropathy; D63.1 Anemia in chronic kidney disease; B95.62 Methicillin resistant Staphylococcus aureus infection as the cause of diseases classified elsewhere; E10.51 Type 1 diabetes mellitus with diabetic peripheral angiopathy without gangrene; N17.0 Acute kidney failure with tubular necrosis; N14.1 Nephropathy induced by other drugs, medicaments and biological substances
CPT/HCPCS: 36247; 36415; 71046; 75625; 75716; 76770; 80048; 80053; 80202; 81001; 82570; 82728; 82948; 83036; 83540; 83605; 83735; 84100; 84156; 84466; 85025; 85651; 86140; 86850; 86900; 86920; 86922; 87040; 87071; 87075; 87186; 87205; 90714; 93005; 93925; 93970; 97139; 97602; 99284; C1766; C1769; C1887; J0360; J0692; J0720; J1100; J1644; J1650; J1815; J1817; J1940; J2001; J2250; J2270; J2405; J2543; J3010; J3370; J7030; J7040; J7050; P9016; Q4081; Q9967

== ENCOUNTER → 2019-05-13 | Emergency (ER) | payer BC ==
--- NOTE | 2019-05-13 22:45 | NUR ---
PT ARRIVED TO ED @9153, TO BE RE-REGISTERED DUE TO INPUT OF INCORRECT TIME. NEW VISIT AND ACCOUNT NUMBER TO BE CREATED BY [facility].
== END | disposition left against medical advice (07) ==
LOC: ER 22:44
DX: R21 Rash and other nonspecific skin eruption (principal)

== ENCOUNTER 2019-06-28 11:26 | Emergency (ER) | payer BC, OTHER ==
[~2019-06-28] VITALS: Ht 170.2 cm; Wt 90.7 kg
[2019-06-28 12:27] LABS: BASOPHILS % 0.4 % (0.0-1.0); EOSINOPHILS # (AUTO) 0.1 (0.0-0.4); EOSINOPHILS % 2.9 % (0.0-6.0); HEMATOCRIT 20.9 % (38.2-49.6); LYMPHOCYTES # (AUTO) 1.5 (1.0-3.2); LYMPHOCYTES % 29.6 % (18.0-39.1); MEAN CORPUSCULAR HEMOGLOBIN 28.8 pg (28-32); MEAN CORPUSCULAR VOLUME 87.1 fL (81-99); MONOCYTES # (AUTO) 0.7 (0.2-0.8); MONOCYTES % 13.7 % (4.4-11.3); NEUTROPHILS # (AUTO) 2.5 (2.1-6.9); NEUTROPHILS % 51.2 % (38.7-80.0); PLATELET COUNT 111 x10e3/uL (140-360); RED CELL DISTRIBUTION WIDTH 14.3 % (11.7-14.4)
[2019-06-28 12:34] LABS: HEMOGLOBIN 6.9 g/dL (14.0-18.0)
[2019-06-28 12:44] VITALS: BP 156/77
[2019-06-28 12:45] LABS: ANION GAP 14.5 mmol/L (8-16); CALCIUM 8.8 mg/dL (8.4-10.2); CREATININE, SERUM 2.51 mg/dL (0.72-1.25); POTASSIUM 4.5 mmol/L (3.5-5.1)
[2019-06-28 13:47] LABS: FERRITIN 838.97 ng/mL (21.81-274.66)
== END 2019-06-28 13:42 | disposition home or self-care (01) ==
LOC: ER 11:26
DX: D61.3 Idiopathic aplastic anemia (principal); I10 Essential (primary) hypertension; E11.9 Type 2 diabetes mellitus without complications; Z79.4 Long term (current) use of insulin
CPT/HCPCS: 36415; 80048; 82728; 83540; 84466; 85025; 86850; 86900; 99283

== ENCOUNTER 2020-01-22 15:25 | Emergency (ER) | payer OTHER ==
[~2020-01-22] VITALS: Ht 170.2 cm; Wt 90.7 kg
[2020-01-22 17:12] LABS: BASOPHILS % 0.5 % (0.0-1.0); EOSINOPHILS # (AUTO) 0.1 (0.0-0.4); EOSINOPHILS % 2.4 % (0.0-6.0); HEMATOCRIT 31.2 % (38.2-49.6); HEMOGLOBIN 10.6 g/dL (14.0-18.0); LYMPHOCYTES # (AUTO) 1.4 (1.0-3.2); LYMPHOCYTES % 24.3 % (18.0-39.1); MEAN CORPUSCULAR VOLUME 88.4 fL (81-99); MONOCYTES # (AUTO) 0.6 (0.2-0.8); MONOCYTES % 9.5 % (4.4-11.3); NEUTROPHILS # (AUTO) 3.6 (2.1-6.9); NEUTROPHILS % 62.6 % (38.7-80.0); PLATELET COUNT 219 x10e3/uL (140-360); RED BLOOD COUNT 3.53 x10e6/uL (4.3-5.7); RED CELL DISTRIBUTION WIDTH 13.2 % (11.7-14.4)
[2020-01-22 17:24] LABS: BILIRUBIN,URINE NEGATIVE (NEGATIVE); CLARITY,URINE SL CLOUDY (CLEAR); COLOR,URINE YELLOW (YELLOW); KETONES,URINE NEGATIVE (NEGATIVE); LEUKOCYTE ESTERASE ,URINE NEGATIVE (NEGATIVE); NITRITE,URINE NEGATIVE (NEGATIVE); PROTEIN,URINE DIPSTICK >=300 (NEGATIVE); URINE UROBILINOGEN 0.2 mg/dL (0.2 - 1)
[2020-01-22 17:31] LABS: ALBUMIN 3.3 g/dL (3.5-5.0); ALBUMIN/GLOBULIN RATIO 0.8 (0.8-2.0); ANION GAP 8.9 mmol/L (8-16); CALCIUM 8.2 mg/dL (8.4-10.2); CREATININE, SERUM 2.12 mg/dL (0.72-1.25); POTASSIUM 4.9 mmol/L (3.5-5.1)
--- NOTE | 2020-01-22 17:38 | Diagnostic Imaging Report ---
EXAMINATION: FOOT RIGHT COMPLETE INDICATION: Diabetic foot ulcer COMPARISON: None FINDINGS: No acute fracture or dislocation. Chronic deformities of the fourth and fifth digits. Diffuse soft tissue swelling. Focus of subcutaneous soft tissue emphysema along the plantar aspect of the forefoot is compatible with known diabetic foot ulcer. No specific evidence of underlying osteomyelitis. Atherosclerotic arterial calcifications. Scattered degenerative changes. IMPRESSION: No acute osseous injury. Chronic fourth and fifth digit deformities. Soft tissue ulcer at the lateral plantar forefoot. No specific radiographic evidence of underlying osteoarthritis. Note is made that plain radiographs are not sensitive in the detection of early osteomyelitis if there is high clinical suspicion, recommend MRI for further evaluation. Signed by: Xena Bonner MD on 01/22/2020 5:35 PM
[2020-01-22 17:39] LABS: EPITHELIAL CELLS,URINE FEW /LPF
[2020-01-22 17:57] VITALS: BP 142/82
== END 2020-01-22 18:08 | disposition home or self-care (01) ==
LOC: ER 15:25
DX: E11.621 Type 2 diabetes mellitus with foot ulcer (principal); I10 Essential (primary) hypertension
CPT/HCPCS: 36415; 80053; 81001; 82948; 85025; 99283

== ENCOUNTER 2021-01-22 19:37 | Inpatient (IN) | payer BC, OTHER ==
[~2021-01-22] VITALS: Ht 170.2 cm; Wt 108.0 kg
[2021-01-22 20:27] LABS: BASOPHILS % 0.3 % (0.0-1.0); EOSINOPHILS # (AUTO) 0.1 (0.0-0.4); EOSINOPHILS % 0.9 % (0.0-6.0); HEMATOCRIT 21.2 % (38.2-49.6); LYMPHOCYTES # (AUTO) 0.9 (1.0-3.2); LYMPHOCYTES % 12.7 % (18.0-39.1); MEAN CORPUSCULAR HEMOGLOBIN 30.3 pg (28-32); MEAN CORPUSCULAR VOLUME 91.8 fL (81-99); MONOCYTES # (AUTO) 0.6 (0.2-0.8); MONOCYTES % 8.5 % (4.4-11.3); NEUTROPHILS # (AUTO) 5.8 (2.1-6.9); NEUTROPHILS % 77.3 % (38.7-80.0); PLATELET COUNT 166 x10e3/uL (140-360); RED BLOOD COUNT 2.31 x10e6/uL (4.3-5.7); RED CELL DISTRIBUTION WIDTH 13.2 % (11.7-14.4)
[2021-01-22 20:30] LABS: CLARITY,URINE SL CLOUDY (CLEAR); COLOR,URINE YELLOW (YELLOW); KETONES,URINE NEGATIVE (NEGATIVE); LEUKOCYTE ESTERASE ,URINE NEGATIVE (NEGATIVE); NITRITE,URINE NEGATIVE (NEGATIVE); PROTEIN,URINE DIPSTICK >=300 (NEGATIVE); URINE UROBILINOGEN 0.2 mg/dL (0.2 - 1)
[2021-01-22 20:40] LABS: ALBUMIN 2.7 g/dL (3.5-5.0); ALBUMIN/GLOBULIN RATIO 0.6 (0.8-2.0); ANION GAP 17.5 mmol/L (8-16); CREATININE, SERUM 5.98 mg/dL (0.72-1.25); POTASSIUM 4.5 mmol/L (3.5-5.1)
[2021-01-22 20:44] LABS: CALCIUM 6.8 mg/dL (8.4-10.2)
[2021-01-22 20:45] LABS: AMORPHOUS SEDIMENT,URINE FEW (FEW); BACTERIA,URINE MODERATE /HPF; RBC,URINE 0-5 /HPF (0-5)
[2021-01-22 20:46] LABS: CREATINE KINASE MB 2.4 ng/mL (0-5.0)
[2021-01-22] MEDS ORDERED: CALCIUM GLUCONATE 10% INJ 9.3 MEQ in SODIUM CHLORIDE 0.9% 100 ML 100 ML IV ONE (21:45)
[2021-01-22] MEDS ORDERED: FUROSEMIDE INJ 10 MG/ML 2 ML VIAL IV SCH (21:45)
[2021-01-22] MEDS ORDERED: SODIUM BICARB 4.2% 150 MEQ in DEXTROSE 5% 1,000 ML IV ONE (21:45)
[2021-01-22] MEDS ORDERED: SODIUM CHLORIDE 0.9% 250ML 250 ML IV ONE (21:45)
[2021-01-22] MEDS ORDERED: ACETAMINOPHEN 325 MG TAB PO PRN (22:15)
[2021-01-22] MEDS ORDERED: DEXTROSE 50% SYRINGE 50 ML IV PRN (22:15)
[2021-01-22] MEDS ORDERED: DEXTROSE 5% 1,000 ML IV ONE (22:16)
[2021-01-22] MEDS ORDERED: SODIUM BICARBONATE 8.4% SYRING 150 ML ONE (22:19)
[2021-01-22] MEDS ORDERED: CALCIUM GLUCONATE 10% INJ 0.465 MEQ/ML VIAL ONE (22:32)
[2021-01-22] MEDS ORDERED: SODIUM CHLORIDE 0.9% 100 ML ONE (22:34)
[2021-01-22] MEDS: TRAMADOL HCL 50 MG TAB PO PRN (22:35)
[2021-01-22] MEDS ORDERED: SODIUM CHLORIDE 0.9% 50ML 50 ML ONE (22:41)
[2021-01-22] MEDS: CEFTRIAXONE SOD 1 GM VIAL IV SCH (23:15)
[2021-01-23] MEDS ORDERED: SODIUM CHLORIDE 0.9% 250ML 250 ML ONE ×3 (02:19→20:48)
[2021-01-23 06:48] LABS: BASOPHILS % 0.3 % (0.0-1.0); EOSINOPHILS # (AUTO) 0.1 (0.0-0.4); EOSINOPHILS % 1.4 % (0.0-6.0); LYMPHOCYTES # (AUTO) 1.1 (1.0-3.2); LYMPHOCYTES % 16.4 % (18.0-39.1); MEAN CORPUSCULAR HEMOGLOBIN 30.3 pg (28-32); MEAN CORPUSCULAR HGB CONC 32.8 g/dL (31-35); MEAN CORPUSCULAR VOLUME 92.4 fL (81-99); MONOCYTES # (AUTO) 0.8 (0.2-0.8); MONOCYTES % 11.6 % (4.4-11.3); NEUTROPHILS # (AUTO) 4.5 (2.1-6.9); NEUTROPHILS % 69.7 % (38.7-80.0); PLATELET COUNT 139 x10e3/uL (140-360); RED BLOOD COUNT 2.11 x10e6/uL (4.3-5.7); RED CELL DISTRIBUTION WIDTH 13.3 % (11.7-14.4)
[2021-01-23 06:55] LABS: HEMATOCRIT 19.5 % (38.2-49.6); HEMOGLOBIN 6.4 g/dL (14.0-18.0)
[2021-01-23 07:02] LABS: ALBUMIN 2.4 g/dL (3.5-5.0); ALBUMIN/GLOBULIN RATIO 0.6 (0.8-2.0); ANION GAP 15.3 mmol/L (8-16); CALCIUM 7.1 mg/dL (8.4-10.2); CREATININE, SERUM 5.76 mg/dL (0.72-1.25); POTASSIUM 4.3 mmol/L (3.5-5.1)
[2021-01-23] MEDS: INSULIN REGULAR, HUMAN 100 UNIT/1 ML 3ML VIAL SQ SCH ×4 (07:33→20:27)
[2021-01-23 07:48] LABS: HEMOGLOBIN 6.5 g/dL (14.0-18.0)
[2021-01-23] MEDS ORDERED: SODIUM CHLORIDE 0.9% 250ML 250 ML IV ONE (09:40)
[2021-01-23 12:01] VITALS: BP 160/90
[2021-01-23 12:05] VITALS: BP 160/90
[2021-01-23 12:08] VITALS: BP 160/90
[2021-01-23] MEDS: TRAMADOL HCL 50 MG TAB PO PRN ×2 (12:44→18:20)
[2021-01-23] MEDS ORDERED: DEXTROSE 50% SYRINGE 50 ML IV PRN (14:15)
[2021-01-23] MEDS ORDERED: ACETAMINOPHEN 325 MG TAB PO PRN (14:15)
[2021-01-23] MEDS ORDERED: BENZONATATE 100 MG CAP PO PRN (14:15)
[2021-01-23] MEDS ORDERED: POLYETHYLENE GLYCOL 3350 17 GM PACK PO PRN (14:15)
[2021-01-23] MEDS ORDERED: DOCUSATE SODIUM 100 MG CAP PO PRN (14:15)
[2021-01-23] MEDS ORDERED: DIPHENHYDRAMINE HCL 25 MG CAP PO PRN (14:15)
[2021-01-23 14:27] LABS: % IRON SATURATION 17 % (15-50); IRON 33 ug/dL (65-175); TOTAL IRON BINDING CAPACITY 193 ug/dL (261-478); TRANSFERRIN 138 mg/dL (174-364)
[2021-01-23 16:14] VITALS: BP 149/81
[2021-01-23 19:55] VITALS: BP 165/83
[2021-01-23] MEDS ORDERED: SODIUM CHLORIDE 0.9% 50ML 50 ML ONE (20:07)
[2021-01-23] MEDS: CEFTRIAXONE SOD 1 GM VIAL IV SCH (20:49)
[2021-01-23] MEDS: HYDROCODONE/APAP 5MG-325MG TAB PO PRN (20:49)
[2021-01-23] MEDS ORDERED: MELATONIN 5 MG TABLET PO PRN (21:00)
[2021-01-23 21:59] VITALS: BP 165/83
[2021-01-24] VITALS (7 sets, daily range): BP systolic 138–181; BP diastolic 67–91
[2021-01-24 03:58] LABS: BASOPHILS % 0.5 % (0.0-1.0); EOSINOPHILS # (AUTO) 0.2 (0.0-0.4); EOSINOPHILS % 2.6 % (0.0-6.0); HEMOGLOBIN 8.4 g/dL (14.0-18.0); LYMPHOCYTES # (AUTO) 0.9 (1.0-3.2); LYMPHOCYTES % 16.4 % (18.0-39.1); MEAN CORPUSCULAR HEMOGLOBIN 30.5 pg (28-32); MEAN CORPUSCULAR HGB CONC 33.6 g/dL (31-35); MEAN CORPUSCULAR VOLUME 90.9 fL (81-99); MONOCYTES # (AUTO) 0.6 (0.2-0.8); MONOCYTES % 10.3 % (4.4-11.3); NEUTROPHILS % 69.9 % (38.7-80.0); PLATELET COUNT 162 x10e3/uL (140-360); RED BLOOD COUNT 2.75 x10e6/uL (4.3-5.7); RED CELL DISTRIBUTION WIDTH 13.3 % (11.7-14.4)
[2021-01-24] MEDS ORDERED: IRON SUCROSE 100 MG in SODIUM CHLORIDE 0.9% 100 ML 100 ML IV SCH (05:00)
[2021-01-24 05:24] LABS: CREATININE, SERUM 5.3 mg/dL (0.72-1.25); MAGNESIUM 1.9 MG/DL (1.3-2.1); PHOSPHORUS 5.9 MG/DL (2.3-4.7)
[2021-01-24 05:57] LABS: THYROID STIMULATING HORMONE 3.757 uIU/mL (0.350-4.940)
[2021-01-24] MEDS: INSULIN REGULAR, HUMAN 100 UNIT/1 ML 3ML VIAL SQ SCH ×4 (07:30→20:09)
[2021-01-24] MEDS: IRON SUCROSE 100 MG in SODIUM CHLORIDE 0.9% 100 ML 100 ML IV SCH (08:33)
[2021-01-24] MEDS: PANTOPRAZOLE SOD 40 MG TABEC PO SCH (08:33)
[2021-01-24] MEDS: HYDROCODONE/APAP 5MG-325MG TAB PO PRN ×2 (08:45→20:00)
[2021-01-24] MEDS: ONDANSETRON HCL INJ 2MG/ML 2ML 2 MG/ML VIAL IV PRN (13:55)
[2021-01-24] MEDS: HYDRALAZINE HCL 20 MG/ML VIAL IV PRN (16:04)
[2021-01-24] MEDS: NIFEDIPINE CR 30 MG TAB PO SCH (16:30)
[2021-01-24] MEDS: SODIUM BICARBONATE 650 MG TAB PO SCH (16:51)
[2021-01-24] MEDS ORDERED: SODIUM CHLORIDE 0.9% 50ML 50 ML ONE (19:45)
[2021-01-24] MEDS: CEFTRIAXONE SOD 1 GM VIAL IV SCH (22:19)
[2021-01-25] VITALS (8 sets, daily range): BP systolic 151–160; BP diastolic 75–86
[2021-01-25] MEDS ORDERED: BISACODYL 5 MG TAB EC PO ONE ×3 (01:15→02:15)
[2021-01-25 04:50] LABS: BASOPHILS % 0.4 % (0.0-1.0); EOSINOPHILS # (AUTO) 0.1 (0.0-0.4); EOSINOPHILS % 2.4 % (0.0-6.0); HEMATOCRIT 26.2 % (38.2-49.6); HEMOGLOBIN 8.5 g/dL (14.0-18.0); LYMPHOCYTES # (AUTO) 0.8 (1.0-3.2); LYMPHOCYTES % 16.2 % (18.0-39.1); MEAN CORPUSCULAR HEMOGLOBIN 30.2 pg (28-32); MEAN CORPUSCULAR HGB CONC 32.4 g/dL (31-35); MEAN CORPUSCULAR VOLUME 93.2 fL (81-99); MONOCYTES # (AUTO) 0.6 (0.2-0.8); MONOCYTES % 11.2 % (4.4-11.3); NEUTROPHILS # (AUTO) 3.5 (2.1-6.9); NEUTROPHILS % 69.4 % (38.7-80.0); PLATELET COUNT 185 x10e3/uL (140-360); RED BLOOD COUNT 2.81 x10e6/uL (4.3-5.7); RED CELL DISTRIBUTION WIDTH 13.2 % (11.7-14.4)
[2021-01-25] MEDS ORDERED: PEG (High)/E-LYTE SOLN 4,000 ML BTL PO ONE (05:00)
[2021-01-25] MEDS: HYDROCODONE/APAP 5MG-325MG TAB PO PRN ×2 (05:15→20:28)
[2021-01-25 05:16] LABS: ALBUMIN 2.3 g/dL (3.5-5.0); ALBUMIN/GLOBULIN RATIO 0.5 (0.8-2.0); ANION GAP 14.2 mmol/L (8-16); CALCIUM 7.1 mg/dL (8.4-10.2); CREATININE, SERUM 4.95 mg/dL (0.72-1.25); POTASSIUM 4.2 mmol/L (3.5-5.1)
[2021-01-25] MEDS: INSULIN REGULAR, HUMAN 100 UNIT/1 ML 3ML VIAL SQ SCH ×4 (07:30→20:28)
[2021-01-25] MEDS: SODIUM BICARBONATE 650 MG TAB PO SCH ×2 (08:03→16:04)
[2021-01-25] MEDS: CYANOCOBALAMIN INJ 1,000 MCG/ML VIAL IM SCH (08:03)
[2021-01-25] MEDS: PANTOPRAZOLE SOD 40 MG TABEC PO SCH (08:03)
[2021-01-25] MEDS: NIFEDIPINE CR 30 MG TAB PO SCH (08:03)
[2021-01-25] MEDS: IRON SUCROSE 100 MG in SODIUM CHLORIDE 0.9% 100 ML 100 ML IV SCH (09:58)
[2021-01-25] MEDS ORDERED: VANCOMYCIN 1GM/NS 250 ML 250 ML IV SCH (12:00)
[2021-01-25] MEDS: VANCOMYCIN 1GM/NS 250 ML 250 ML IV SCH (13:12)
[2021-01-25] MEDS: COLLAGENASE 5 GM TUBE TP SCH (14:00)
[2021-01-25 19:30] LABS: CREATININE,URINE RANDOM 90.49 mg/dL (63-166)
[2021-01-25] MEDS ORDERED: SODIUM CHLORIDE 0.9% 50ML 50 ML ONE (20:06)
[2021-01-25] MEDS: CEFTRIAXONE SOD 1 GM VIAL IV SCH (20:28)
[2021-01-26] VITALS (8 sets, daily range): BP systolic 143–179; BP diastolic 80–91
[2021-01-26] MEDS: HYDROCODONE/APAP 5MG-325MG TAB PO PRN ×4 (04:27→23:32)
[2021-01-26 06:01] LABS: BASOPHILS % 0.6 % (0.0-1.0); EOSINOPHILS # (AUTO) 0.1 (0.0-0.4); EOSINOPHILS % 2.3 % (0.0-6.0); HEMATOCRIT 24.9 % (38.2-49.6); HEMOGLOBIN 8.4 g/dL (14.0-18.0); LYMPHOCYTES # (AUTO) 0.7 (1.0-3.2); LYMPHOCYTES % 15.5 % (18.0-39.1); MEAN CORPUSCULAR HEMOGLOBIN 30.9 pg (28-32); MEAN CORPUSCULAR HGB CONC 33.7 g/dL (31-35); MEAN CORPUSCULAR VOLUME 91.5 fL (81-99); MONOCYTES # (AUTO) 0.5 (0.2-0.8); MONOCYTES % 10.5 % (4.4-11.3); NEUTROPHILS # (AUTO) 3.4 (2.1-6.9); NEUTROPHILS % 70.7 % (38.7-80.0); PLATELET COUNT 176 x10e3/uL (140-360); RED BLOOD COUNT 2.72 x10e6/uL (4.3-5.7); RED CELL DISTRIBUTION WIDTH 13.1 % (11.7-14.4)
[2021-01-26 06:35] LABS: ANION GAP 14.1 mmol/L (8-16); CREATININE, SERUM 5.14 mg/dL (0.72-1.25); POTASSIUM 4.1 mmol/L (3.5-5.1)
[2021-01-26] MEDS: INSULIN REGULAR, HUMAN 100 UNIT/1 ML 3ML VIAL SQ SCH ×4 (07:30→19:49)
[2021-01-26] MEDS: SODIUM BICARBONATE 650 MG TAB PO SCH ×2 (08:04→16:22)
[2021-01-26] MEDS: IRON SUCROSE 100 MG in SODIUM CHLORIDE 0.9% 100 ML 100 ML IV SCH (08:04)
[2021-01-26] MEDS: PANTOPRAZOLE SOD 40 MG TABEC PO SCH (08:04)
[2021-01-26] MEDS: CYANOCOBALAMIN INJ 1,000 MCG/ML VIAL IM SCH (08:04)
[2021-01-26] MEDS: NIFEDIPINE CR 30 MG TAB PO SCH (08:04)
[2021-01-26] MEDS: COLLAGENASE 5 GM TUBE TP SCH (09:25)
[2021-01-26 14:44] LABS: INR 1.12; PROTHROMBIN TIME 15.1 seconds (11.9-14.5)
[2021-01-26 14:45] LABS: PARTIAL THROMBOPLASTIN TIME 40.6 seconds (23.8-35.5)
[2021-01-26] MEDS: CEFTRIAXONE SOD 1 GM VIAL IV SCH (19:56)
[2021-01-26] MEDS ORDERED: SODIUM CHLORIDE 0.9% 50ML 50 ML ONE (20:00)
[2021-01-26] MEDS: HYDRALAZINE HCL 20 MG/ML VIAL IV PRN (23:32)
[2021-01-26] MEDS: ONDANSETRON HCL INJ 2MG/ML 2ML 2 MG/ML VIAL IV PRN (23:32)
[2021-01-27] VITALS (7 sets, daily range): BP systolic 156–184; BP diastolic 85–94
[2021-01-27 04:48] LABS: BASOPHILS % 0.4 % (0.0-1.0); EOSINOPHILS # (AUTO) 0.1 (0.0-0.4); EOSINOPHILS % 2.5 % (0.0-6.0); HEMATOCRIT 24.7 % (38.2-49.6); HEMOGLOBIN 8.3 g/dL (14.0-18.0); LYMPHOCYTES # (AUTO) 0.8 (1.0-3.2); LYMPHOCYTES % 13.6 % (18.0-39.1); MEAN CORPUSCULAR HEMOGLOBIN 30.6 pg (28-32); MEAN CORPUSCULAR HGB CONC 33.6 g/dL (31-35); MEAN CORPUSCULAR VOLUME 91.1 fL (81-99); MONOCYTES # (AUTO) 0.6 (0.2-0.8); MONOCYTES % 10.5 % (4.4-11.3); NEUTROPHILS % 72.6 % (38.7-80.0); PLATELET COUNT 189 x10e3/uL (140-360); RED BLOOD COUNT 2.71 x10e6/uL (4.3-5.7)
[2021-01-27 05:12] LABS: ALBUMIN 2.3 g/dL (3.5-5.0); ALBUMIN/GLOBULIN RATIO 0.6 (0.8-2.0); ANION GAP 15.1 mmol/L (8-16); CALCIUM 7.1 mg/dL (8.4-10.2); CREATININE, SERUM 5.1 mg/dL (0.72-1.25); PHOSPHORUS 5.2 MG/DL (2.3-4.7); POTASSIUM 4.1 mmol/L (3.5-5.1)
[2021-01-27] MEDS: INSULIN REGULAR, HUMAN 100 UNIT/1 ML 3ML VIAL SQ SCH ×4 (07:30→21:00)
[2021-01-27] MEDS: PANTOPRAZOLE SOD 40 MG TABEC PO SCH (08:20)
[2021-01-27] MEDS: CYANOCOBALAMIN INJ 1,000 MCG/ML VIAL IM SCH (08:21)
[2021-01-27] MEDS: NIFEDIPINE CR 30 MG TAB PO SCH (08:22)
[2021-01-27] MEDS: SODIUM BICARBONATE 650 MG TAB PO SCH ×2 (08:22→17:05)
[2021-01-27] MEDS: IRON SUCROSE 100 MG in SODIUM CHLORIDE 0.9% 100 ML 100 ML IV SCH (08:22)
[2021-01-27] MEDS: COLLAGENASE 5 GM TUBE TP SCH (08:22)
[2021-01-27] MEDS: ONDANSETRON HCL INJ 2MG/ML 2ML 2 MG/ML VIAL IV PRN (08:32)
[2021-01-27] MEDS: HYDROCODONE/APAP 5MG-325MG TAB PO PRN ×2 (08:37→17:10)
[2021-01-27] MEDS ORDERED: LIDOCAINE HCL 1% LOCAL INJ 20 ML VIAL ONE (09:22)
[2021-01-27] MEDS ORDERED: SODIUM CHLORIDE 0.9% 250ML 250 ML ONE (09:22)
[2021-01-27] MEDS ORDERED: MIDAZOLAM HCL 2 MG/2 ML VIAL ONE (09:37)
[2021-01-27] MEDS ORDERED: FENTANYL CITRATE/PF 100MCG/2 ML INJ ONE (09:38)
[2021-01-27] MEDS ORDERED: CEFAZOLIN SOD 1 GM/NS 50ML 50 ML IV ONE (09:38)
[2021-01-27] MEDS ORDERED: HEPARIN SOD (PORCINE) 1000 UNIT/ML SDV ONE (10:29)
[2021-01-27] MEDS ORDERED: CEFEPIME HCL 1GM 1 GM in SODIUM CHLORIDE 0.9% 50ML 50 ML IV SCH (12:30)
[2021-01-27] MEDS: VANCOMYCIN 1GM/NS 250 ML 250 ML IV SCH (13:00)
[2021-01-27] MEDS ORDERED: HEPARIN SOD (PORCINE) 1000 UNIT/ML SDV IV PRN (16:00)
[2021-01-27] MEDS ORDERED: SODIUM CHLORIDE 0.9% 1000ML 2,000 ML IV PRN (16:00)
[2021-01-27] MEDS ORDERED: MANNITOL 25% 12.5GM/50 ML VIAL IV PRN (16:00)
[2021-01-27] MEDS ORDERED: SODIUM CHLORIDE 0.9% 250ML 500 ML IV PRN (16:00)
[2021-01-28] VITALS (9 sets, daily range): BP systolic 149–183; BP diastolic 76–94
[2021-01-28 06:31] LABS: BASOPHILS % 0.4 % (0.0-1.0); EOSINOPHILS # (AUTO) 0.1 (0.0-0.4); EOSINOPHILS % 2.9 % (0.0-6.0); HEMOGLOBIN 8.3 g/dL (14.0-18.0); LYMPHOCYTES # (AUTO) 0.7 (1.0-3.2); LYMPHOCYTES % 15.6 % (18.0-39.1); MEAN CORPUSCULAR HEMOGLOBIN 30.7 pg (28-32); MEAN CORPUSCULAR HGB CONC 33.2 g/dL (31-35); MEAN CORPUSCULAR VOLUME 92.6 fL (81-99); MONOCYTES # (AUTO) 0.6 (0.2-0.8); MONOCYTES % 12.3 % (4.4-11.3); NEUTROPHILS # (AUTO) 3.1 (2.1-6.9); NEUTROPHILS % 68.1 % (38.7-80.0); PLATELET COUNT 176 x10e3/uL (140-360); RED CELL DISTRIBUTION WIDTH 13.1 % (11.7-14.4)
[2021-01-28 07:19] LABS: ANION GAP 12.9 mmol/L (8-16); CALCIUM 7.1 mg/dL (8.4-10.2); CREATININE, SERUM 4.32 mg/dL (0.72-1.25); POTASSIUM 3.9 mmol/L (3.5-5.1)
[2021-01-28] MEDS: INSULIN REGULAR, HUMAN 100 UNIT/1 ML 3ML VIAL SQ SCH ×4 (07:30→20:53)
[2021-01-28] MEDS: PANTOPRAZOLE SOD 40 MG TABEC PO SCH (08:15)
[2021-01-28] MEDS: COLLAGENASE 5 GM TUBE TP SCH (08:15)
[2021-01-28] MEDS: SODIUM BICARBONATE 650 MG TAB PO SCH ×2 (08:15→16:39)
[2021-01-28] MEDS: CYANOCOBALAMIN INJ 1,000 MCG/ML VIAL IM SCH (08:15)
[2021-01-28] MEDS: HYDROCODONE/APAP 5MG-325MG TAB PO PRN ×2 (08:23→16:40)
[2021-01-28] MEDS: IRON SUCROSE 100 MG in SODIUM CHLORIDE 0.9% 100 ML 100 ML IV SCH (09:00)
[2021-01-28] MEDS ORDERED: CEFEPIME HCL 1 GM VIAL IV SCH (09:00)
[2021-01-28] MEDS: NIFEDIPINE CR 30 MG TAB PO SCH ×2 (10:33→16:39)
[2021-01-28] MEDS: ONDANSETRON HCL INJ 2MG/ML 2ML 2 MG/ML VIAL IV PRN (16:40)
[2021-01-28] MEDS: RAMIPRIL 5 MG CAP PO SCH (20:51)
[2021-01-29] VITALS (7 sets, daily range): BP systolic 153–176; BP diastolic 72–87
[2021-01-29 04:54] LABS: BASOPHILS % 0.4 % (0.0-1.0); EOSINOPHILS # (AUTO) 0.1 (0.0-0.4); EOSINOPHILS % 2.3 % (0.0-6.0); HEMATOCRIT 25.4 % (38.2-49.6); HEMOGLOBIN 8.6 g/dL (14.0-18.0); MEAN CORPUSCULAR HEMOGLOBIN 30.6 pg (28-32); MEAN CORPUSCULAR HGB CONC 33.9 g/dL (31-35); MEAN CORPUSCULAR VOLUME 90.4 fL (81-99); MONOCYTES # (AUTO) 0.6 (0.2-0.8); MONOCYTES % 11.3 % (4.4-11.3); NEUTROPHILS # (AUTO) 3.8 (2.1-6.9); NEUTROPHILS % 67.3 % (38.7-80.0); PLATELET COUNT 189 x10e3/uL (140-360); RED BLOOD COUNT 2.81 x10e6/uL (4.3-5.7); RED CELL DISTRIBUTION WIDTH 12.7 % (11.7-14.4)
[2021-01-29 05:11] LABS: ENDOMYSIAL ANTIBODIES, IGA Negative (Negative)
[2021-01-29 05:19] LABS: CALCIUM 7.2 mg/dL (8.4-10.2); CREATININE, SERUM 4.16 mg/dL (0.72-1.25)
[2021-01-29 06:50] LABS: EOSINOPHILS % (MANUAL) 2 % (0-7); LYMPHOCYTES % (MANUAL) 14 % (19-48); METAMYELOCYTES % (MANUAL) 2 % (0-0); MONOCYTES % (MANUAL) 5 % (3.4-9.0); NEUTROPHILS % (MANUAL) 77 % (40-74)
[2021-01-29] MEDS: INSULIN REGULAR, HUMAN 100 UNIT/1 ML 3ML VIAL SQ SCH ×4 (07:30→20:04)
[2021-01-29] MEDS: MEROPENEM 500MG/ NS 50ML 50 ML IV SCH (07:52)
[2021-01-29] MEDS: PANTOPRAZOLE SOD 40 MG TABEC PO SCH (07:52)
[2021-01-29] MEDS: CYANOCOBALAMIN INJ 1,000 MCG/ML VIAL IM SCH (07:52)
[2021-01-29] MEDS: SODIUM BICARBONATE 650 MG TAB PO SCH ×2 (07:52→16:11)
[2021-01-29] MEDS: NIFEDIPINE CR 30 MG TAB PO SCH ×2 (08:00→16:11)
[2021-01-29] MEDS: IRON SUCROSE 100 MG in SODIUM CHLORIDE 0.9% 100 ML 100 ML IV SCH (08:33)
[2021-01-29] MEDS ORDERED: COLLAGENASE OINTMENT 30 GM TUBE TP ONE (08:44)
[2021-01-29] MEDS: COLLAGENASE 5 GM TUBE TP SCH (09:20)
[2021-01-29] MEDS: HYDROCODONE/APAP 5MG-325MG TAB PO PRN ×2 (14:23→20:43)
[2021-01-29] MEDS: RAMIPRIL 5 MG CAP PO SCH (20:43)
[2021-01-30 00:02] VITALS: BP 122/71
[2021-01-30 04:23] VITALS: BP 151/90
[2021-01-30] MEDS: HYDROCODONE/APAP 5MG-325MG TAB PO PRN ×2 (07:14→13:15)
[2021-01-30] MEDS: INSULIN REGULAR, HUMAN 100 UNIT/1 ML 3ML VIAL SQ SCH ×2 (07:30→12:41)
[2021-01-30] MEDS: PANTOPRAZOLE SOD 40 MG TABEC PO SCH (08:05)
[2021-01-30] MEDS: CYANOCOBALAMIN INJ 1,000 MCG/ML VIAL IM SCH (08:05)
[2021-01-30] MEDS: IRON SUCROSE 100 MG in SODIUM CHLORIDE 0.9% 100 ML 100 ML IV SCH (08:05)
[2021-01-30] MEDS: SODIUM BICARBONATE 650 MG TAB PO SCH (08:06)
[2021-01-30] MEDS: NIFEDIPINE CR 30 MG TAB PO SCH (08:06)
[2021-01-30 08:50] VITALS: BP 183/92
[2021-01-30 09:15] VITALS: BP 183/92
[2021-01-30] MEDS ORDERED: SODIUM CHLORIDE 0.9% 50ML 50 ML ONE (09:29)
[2021-01-30] MEDS: MEROPENEM 500MG/ NS 50ML 50 ML IV SCH (09:50)
[2021-01-30] MEDS: COLLAGENASE 5 GM TUBE TP SCH (11:52)
[2021-01-30 12:06] VITALS: BP 151/75
[2021-01-30] MEDS ORDERED: ONDANSETRON HCL 4 MG ORAL DISINTEGRATING TAB PO PRN (12:45)
== END 2021-01-30 15:00 | DRG 623 ==
LOC: ER 20:05 → ERHOLD 22:10 → IMCU 01-23 10:59
PROVIDERS: ADMIT Internal Medicine; ATTEND Internal Medicine
PROC: 0JBQ0ZZ Excision of Right Foot Subcutaneous Tissue and Fascia, Open Approach (ICD-10-PCS; principal; 2021-01-27)
PROC: 02HV33Z Insertion of Infusion Device into Superior Vena Cava, Percutaneous Approach (ICD-10-PCS; 2021-01-27)
PROC: 0JH63XZ Insertion of Tunneled Vascular Access Device into Chest Subcutaneous Tissue and Fascia, Percutaneous Approach (ICD-10-PCS; 2021-01-27)
PROC: 5A1D70Z Performance of Urinary Filtration, Intermittent, Less than 6 Hours Per Day (ICD-10-PCS; 2021-01-27)
DX: E11.69 Type 2 diabetes mellitus with other specified complication (principal); N39.0 Urinary tract infection, site not specified; M86.8X7 Other osteomyelitis, ankle and foot; I13.2 Hypertensive heart and chronic kidney disease with heart failure and with stage 5 chronic kidney disease, or end stage renal disease; N17.9 Acute kidney failure, unspecified; E11.22 Type 2 diabetes mellitus with diabetic chronic kidney disease; Z91.19 Patient's noncompliance with other medical treatment and regimen; I50.9 Heart failure, unspecified; D63.1 Anemia in chronic kidney disease; B95.2 Enterococcus as the cause of diseases classified elsewhere; E10.65 Type 1 diabetes mellitus with hyperglycemia; Z79.899 Other long term (current) drug therapy; N25.89 Other disorders resulting from impaired renal tubular function; K29.70 Gastritis, unspecified, without bleeding; G47.00 Insomnia, unspecified; K80.80 Other cholelithiasis without obstruction; E10.22 Type 1 diabetes mellitus with diabetic chronic kidney disease; N18.6 End stage renal disease; Z99.2 Dependence on renal dialysis; B96.5 Pseudomonas (aeruginosa) (mallei) (pseudomallei) as the cause of diseases classified elsewhere; B95.1 Streptococcus, group B, as the cause of diseases classified elsewhere; Z20.822 Contact with and (suspected) exposure to COVID-19
CPT/HCPCS: 36415; 36558; 71045; 74176; 74470; 76770; 76937; 77001; 80048; 80053; 81001; 82270; 82550; 82553; 82575; 82607; 82746; 82784; 82948; 83036; 83516; 83540; 83630; 83735; 83970; 83993; 84100; 84443; 84466; 84484; 85014; 85018; 85025; 85045; 85610; 85651; 85730; 86140; 86256; 86704; 86705; 86706; 86850; 86900; 86920; 86922; 87045; 87071; 87177; 87186; 87205; 87340; 93005; 93970; 99152; 99284; C1892; J0360; J0610; J0690; J0692; J0696; J1644; J1756; J1817; J1940; J2001; J2150; J2250; J2405; J3010; J3370; J3420; J7030; J7050; J7070; P9016; U0002

== ENCOUNTER → 2023-03-23 | Outpatient (CLI) | payer BC, MEDICARE | LOC: RAD 12:58 | PROVIDERS: ATTEND Family Medicine Adult Medicine | DX: Z01.810 Encounter for preprocedural cardiovascular examination (principal) | CPT/HCPCS: 71046; 93005; 93306 ==

== ENCOUNTER 2023-04-06 12:38 | Outpatient (RCR) | payer BC, MEDICARE ==
[2023-03-25 18:30] LABS: BASOPHILS % 0.6 % (0.0-1.0); EOSINOPHILS # (AUTO) 0.1 (0.0-0.4); EOSINOPHILS % 1.6 % (0.0-6.0); HEMATOCRIT 28.5 % (38.2-49.6); HEMOGLOBIN 9.7 g/dL (14.0-18.0); LYMPHOCYTES # (AUTO) 1.7 (1.0-3.2); LYMPHOCYTES % 24.5 % (18.0-39.1); MEAN CORPUSCULAR HEMOGLOBIN 33.8 pg (28-32); MEAN CORPUSCULAR VOLUME 99.3 fL (81-99); MONOCYTES # (AUTO) 0.8 (0.2-0.8); MONOCYTES % 11.2 % (4.4-11.3); NEUTROPHILS # (AUTO) 4.2 (2.1-6.9); NEUTROPHILS % 61.8 % (38.7-80.0); PLATELET COUNT 183 x10e3/uL (140-360); RED BLOOD COUNT 2.87 x10e6/uL (4.3-5.7); RED CELL DISTRIBUTION WIDTH 15.7 % (11.7-14.4)
[2023-03-25 18:48] LABS: ALBUMIN 3.9 g/dL (3.5-5.0); ANION GAP 17.6 mmol/L (8-16); CALCIUM 9.2 mg/dL (8.4-10.2); CREATININE, SERUM 7.15 mg/dL (0.72-1.25); POTASSIUM 3.6 mmol/L (3.5-5.1)
[~2023-04-06 12:38] MED LIST changes: +COLLAGENASE OINTMENT 30 GM TUBE ONE; +LIDOCAINE VISC 2% SOLN 15 ML UDC ONE; +MINERAL OIL/PETROLAT/GLYCERI 6OZ BTL ONE
== END 2023-04-07 ==
LOC: WCC 12:38
PROVIDERS: ATTEND Family Medicine Adult Medicine
DX: E11.621 Type 2 diabetes mellitus with foot ulcer (principal); L97.416 Non-pressure chronic ulcer of right heel and midfoot with bone involvement without evidence of necrosis; L97.418 Non-pressure chronic ulcer of right heel and midfoot with other specified severity
CPT/HCPCS: 11042 ×2; 11045; 36415 ×4; 80053; 82948 ×3; 83036; 84134; 85025; 87071; 87075; 87186; 87205; 93923; 99203; 99212 ×3; 99213 ×3; G0277 ×5

== ENCOUNTER → 2023-05-07 | Outpatient (RCR) | payer BC, MEDICARE ==
[~2023-05-07] MED LIST changes: -COLLAGENASE OINTMENT 30 GM TUBE ONE; -MINERAL OIL/PETROLAT/GLYCERI 6OZ BTL ONE
== END ==
LOC: WCC 04-08 08:39
PROVIDERS: ATTEND Family Medicine Adult Medicine
DX: E11.621 Type 2 diabetes mellitus with foot ulcer (principal); L97.416 Non-pressure chronic ulcer of right heel and midfoot with bone involvement without evidence of necrosis; L97.418 Non-pressure chronic ulcer of right heel and midfoot with other specified severity
CPT/HCPCS: 11042 ×5; 36415 ×9; 82948 ×9; 87071; 87075; 87186; 87205; 97605 ×3; 99212 ×6; 99213 ×5; G0277 ×11

== ENCOUNTER → 2023-09-06 | Outpatient (REF) | payer BC, MEDICARE ==
[~2023-09-06] MED LIST changes: +CEPHALEXIN500 MG PO; +COREG3.125 MG PO; -LIDOCAINE VISC 2% SOLN 15 ML UDC ONE; +MINERAL OIL/PETROLAT/GLYCERI 6OZ BTL ONE; +RENVELA0.8 GM PO
== END ==
LOC: WCC 09:43
PROVIDERS: ATTEND Internal Medicine Infectious Disease
DX: E11.40 Type 2 diabetes mellitus with diabetic neuropathy, unspecified (principal); L84 Corns and callosities

== ENCOUNTER → 2023-09-14 | Outpatient (REF) | payer BC, MEDICARE ==
[~2023-09-14] MED LIST changes: -MINERAL OIL/PETROLAT/GLYCERI 6OZ BTL ONE
== END ==
LOC: WCC 10:41
PROVIDERS: ATTEND Internal Medicine Infectious Disease
DX: E11.621 Type 2 diabetes mellitus with foot ulcer (principal); E11.22 Type 2 diabetes mellitus with diabetic chronic kidney disease; M86.171 Other acute osteomyelitis, right ankle and foot; N18.6 End stage renal disease; L97.416 Non-pressure chronic ulcer of right heel and midfoot with bone involvement without evidence of necrosis; L97.418 Non-pressure chronic ulcer of right heel and midfoot with other specified severity; I10 Essential (primary) hypertension; F06.4 Anxiety disorder due to known physiological condition

== ENCOUNTER → 2024-09-18 | Outpatient (REF) | payer MEDICARE | LOC: RAD 09:45 | PROVIDERS: ATTEND Nurse Practitioner Family | DX: E11.621 Type 2 diabetes mellitus with foot ulcer (principal); L97.412 Non-pressure chronic ulcer of right heel and midfoot with fat layer exposed ==

== ENCOUNTER → 2024-10-04 | Outpatient (REF) | payer MEDICARE | LOC: CT 13:33 | PROVIDERS: ATTEND Nurse Practitioner Family | DX: Z01.818 Encounter for other preprocedural examination (principal) ==

== ENCOUNTER 2024-11-30 12:33 | Outpatient (RCR) | payer MEDICARE ==
[~2024-11-30 12:33] MED LIST changes: +LIDOCAINE VISC 2% SOLN 15 ML UDC ONE; +LIDOCAINE/PRILOCAINE 2.5-2.5% KIT ONE; +MINERAL OIL/PETROLAT/GLYCERI 6OZ BTL ONE; +TRYPSIN/BALSAM PERU/CASTOR OIL ONE
== END 2024-12-08 ==
LOC: WCC 12:33
PROVIDERS: ATTEND Nurse Practitioner Family
DX: E11.621 Type 2 diabetes mellitus with foot ulcer (principal); L97.412 Non-pressure chronic ulcer of right heel and midfoot with fat layer exposed